=== PATIENT | female | born 1995 | race Hispanic/Latino ===

== ENCOUNTER 2018-04-07 12:16 | Emergency (ER) | payer MEDICAID ==
[2018-04-07 13:18] LABS: Urine Blood TRACE (NEG); Urine Glucose NEGATIVE (NEG); Urine Protein NEGATIVE (NEG); Urine Specific Gravity 1.015 (1.005-1.030)
[2018-04-07 13:29] LABS: Urine Bacteria <20 /HPF (<20); Urine RBC <5 /HPF (NONE SEEN)
[2018-04-07 13:30] LABS: Urine Culture Reflex Order NOT NEEDED
--- NOTE | 2018-04-07 15:45 | EDPHYS ---
Physician Documentation [facility] Name: Mayte Wright Age: 22 yrs Sex: Female : 1995 Arrival Date: 04/07/2018 Time: 12:20 Bed 16 Private MD: None, None ED Physician Devon Gibson HPI: 04/07 21:48 This 22 yrs old Female presents to ER via Ambulatory with complaints of kdr Abdominal Pain. 21:48 The patient presents to the emergency department with The patient states that she took kdr three home tests that were positive and then went to another clinic where they performed two tests that were negative. She wants to know whether she is or not. 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 - Social history:: Smoking status: Patient/guardian denies using tobacco. - Ebola Screening: : No symptoms or risks identified at this time. ROS: 21:48 Constitutional: Negative for fever, chills, and weight loss, Eyes: Negative for injury, kdr pain, redness, and discharge, ENT: Negative for injury, pain, and discharge, Neck: Negative for injury, pain, and swelling, Cardiovascular: Negative for chest pain, palpitations, and edema, Respiratory: Negative for shortness of breath, cough, wheezing, and pleuritic chest pain, Abdomen/GI: Negative for abdominal pain, nausea, vomiting, diarrhea, and constipation, Back: Negative for injury and pain, MS/Extremity: Negative for injury and deformity, Skin: Negative for injury, rash, and discoloration, Neuro: Negative for headache, weakness, numbness, tingling, and seizure activity. Psych: Negative for depression, anxiety, suicide ideation, homicidal ideation, and hallucinations, Allergy/Immunology: Negative for hives, rash, and allergies, Endocrine: Negative for neck swelling, polydipsia, polyuria, polyphagia, and marked weight changes, Hematologic/Lymphatic: Negative for swollen nodes, abnormal bleeding, and unusual bruising. 21:48 : Positive for vaginal itching, Intermittent for a year or more - denies discharge. Exam: 21:48 Constitutional: This is a well developed, well nourished patient who is awake, alert, kdr and in no acute distress. Head/Face: Normocephalic, atraumatic. Eyes: Pupils equal round and reactive to light, extra-ocular motions intact. Lids and lashes normal. Conjunctiva and sclera are non-icteric and not injected. Cornea within normal limits. Periorbital areas with no swelling, redness, or edema. Neck: Trachea midline, no thyromegaly or masses palpated, and no cervical lymphadenopathy. Supple, full range of motion without nuchal rigidity, or vertebral point tenderness. No Meningismus. Chest/axilla: Normal chest wall appearance and motion. Nontender with no deformity. No lesions are appreciated. Cardiovascular: Regular rate and rhythm with a normal S1 and S2. No gallops, murmurs, or rubs. Normal PMI, no JVD. No pulse deficits. Respiratory: Lungs have equal breath sounds bilaterally, clear to auscultation and percussion. No rales, rhonchi or wheezes noted. No increased work of breathing, no retractions or nasal flaring. Abdomen/GI: Soft, non-tender, with normal bowel sounds. No distension or tympany. No guarding or rebound. No evidence of tenderness throughout. Back: No spinal tenderness. No costovertebral tenderness. Full range of motion. Skin: Warm, dry with normal turgor. Normal color with no rashes, no lesions, and no evidence of cellulitis. MS/ Extremity: Pulses equal, no cyanosis. Neurovascular intact. Full, normal range of motion. Neuro: Awake and alert, GCS 15, oriented to person, place, time, and situation. Cranial nerves II-XII grossly intact. Motor strength 5/5 in all extremities. Sensory grossly intact. Cerebellar exam normal. Normal gait. Psych: Awake, alert, with orientation to person, place and time. Behavior, mood, and affect are within normal limits. Vital Signs: 12:39 BP 120 / 77; Pulse 91; Resp 16; Temp 97.7; Pulse Ox 99% on R/A; Weight 72.57 kg; Height aj 5 ft. 4 in. (162.56 cm); Pain 6/10; 14:30 BP 124 / 75; Pulse 85; Resp 16; Pulse Ox 99% ; jl7 16:06 BP 104 / 74; Pulse 88; Resp 14 S; Pulse Ox 99% on R/A; aa5 12:39 Body Mass Index 27.46 (72.57 kg, 162.56 cm) aj MDM: 13:45 Patient medically screened. snw 21:48 Data reviewed: vital signs, lab test result(s). Counseling: I had a detailed discussion kdr with the patient and/or guardian regarding: the historical points, exam findings, and any diagnostic results supporting the discharge/admit diagnosis, lab results, the need for outpatient follow up. 04/07 13:10 Order name: Urine Dipstick--Ancillary (enter results); Complete Time: 13:41 04/07 13:10 Order name: Urine --Ancillary (enter results); Complete Time: 13:41 04/07 13:10 Order name: Urine Microscopic Only; Complete Time: 13:41 04/07 13:10 Order name: Urine Culture 04/07 13:31 Order name: HCG-Quantitative [facility] 04/07 13:31 Order name: HCG, Quantitative; Complete Time: 15:39 EDMS Administered Medications: No medications were administered Disposition: 04/07/18 15:44 Discharged to Home. Impression: test confirmation: Negative today. - Condition is Fair. - Prescriptions for Fluconazole 150 mg Oral Tablet - take 1 tablet by ORAL route once daily; 1 tablet. - Medication Reconciliation Form, Thank You Letter form. - Follow up: Private Physician; When: 2 - 3 days; Reason: If symptoms return, Further diagnostic work-up, Recheck today's complaints, Continuance of care, Re-evaluation by your physician. - Problem is new. - Symptoms are resolved. Signatures: Dispatcher [employer] EDMS Josep Hill jb1 Vicky Schmitt, MYRA RN Devon Godinez MD MD kdr Therrien, Shelly, SENIOR INFORMATION SYSTEMS ARCHITECT-C SENIOR INFORMATION SYSTEMS ARCHITECT-Csnw Ananda Ramos RN RN jl7 Corrections: (The following items were deleted from the chart) 16:07 15:44 04/07/2018 15:44 Discharged to Home. Impression: test confirmation: jb1 Negative today. Condition is Fair. Forms are Medication Reconciliation Form, Thank You Letter, Antibiotic Education, Prescription Opioid Use. Follow up: Private Physician; When: 2 - 3 days; Reason: If symptoms return, Further diagnostic work-up, Recheck today's complaints, Continuance of care, Re-evaluation by your physician. Problem is new. Symptoms are resolved. kdr
--- NOTE | 2018-04-07 15:45 | ER ---
Nurse's Notes [facility] Name: Mayte Wright Age: 22 yrs Sex: Female : 1995 Arrival Date: 04/07/2018 Time: 12:20 Bed 16 Private MD: None, None Diagnosis: test confirmation: Negative today Presentation: 04/07 12:37 Presenting complaint: Patient states: Reports possible yeast infection with abdominal aj cramping. Patient also reports 3 + UPT at home and negative UPT at clinic this AM. Patient would like blood test for . "My IUD fell out 2 weeks ago.". Transition of care: patient was not received from another setting of care. Onset of symptoms was April 07, 2018. Care prior to arrival: None. 12:37 Method Of Arrival: Ambulatory aj 12:37 Acuity: ANN 4 aj 12:40 Risk Assessment: Do you want to hurt yourself or someone else? Patient reports no jl7 desire to harm self or others. Initial Sepsis Screen: Does the patient meet any 2 criteria? No. Patient's initial sepsis screen is negative. Does the patient have a suspected source of infection? No. Patient's initial sepsis screen is negative. Triage Assessment: 12:39 General: Appears in no apparent distress. comfortable, Behavior is calm, cooperative, aj appropriate for age. Neuro: Level of Consciousness is awake, alert, obeys commands, Oriented to person, place, time, situation, Appropriate for age. Respiratory: Airway is patent Respiratory effort is even, unlabored, Respiratory pattern is regular, symmetrical. GI:. : Reports cramping, vaginal itching, Denies vaginal bleeding. Derm: Skin is intact, is healthy with good turgor, Skin is pink, warm \\T\\ dry. normal. 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 - Social history:: Smoking status: Patient/guardian denies using tobacco. - Ebola Screening: : No symptoms or risks identified at this time. Screenin:50 Abuse screen: Denies threats or abuse. Denies injuries from another. Nutritional jl7 screening: No deficits noted. Tuberculosis screening: No symptoms or risk factors identified. Fall Risk None identified. Assessment: 12:50 General: Appears in no apparent distress. uncomfortable, Behavior is calm, cooperative, jl7 appropriate for age. Pain: Complains of pain in suprapubic area Pain does not radiate. Pain currently is 7 out of 10 on a pain scale. Pain began 2-3 days ago. Is intermittent. Neuro: Level of Consciousness is awake, alert, obeys commands. Cardiovascular: Patient's skin is warm and dry. Respiratory: Airway is patent Respiratory effort is even, unlabored, Respiratory pattern is regular, symmetrical. GI: Bowel sounds present X 4 quads. Abd is soft and non tender. : Reports vaginal itching, "For a year but I haven't gotten treated." Denies burning with urination. Derm: Skin is pink, warm \\T\\ dry. 14:00 Reassessment: Patient and/or family updated on plan of care and expected duration. Pain jl7 level reassessed. Patient is alert, oriented x 3, equal unlabored respirations, skin warm/dry/pink. Pt awaiting lab results. 15:00 Reassessment: Patient appears in no apparent distress at this time. No changes from jl7 previously documented assessment. Awaiting lab results. Magdiel from lab reports results should be done soon. Provider notified. 15:30 Reassessment: Magdiel from lab states "Results are posted." Provider notified. jl7 16:06 Reassessment: Patient is alert, oriented x 3, equal unlabored respirations, skin aa5 warm/dry/pink. Vital Signs: 12:39 BP 120 / 77; Pulse 91; Resp 16; Temp 97.7; Pulse Ox 99% on R/A; Weight 72.57 kg; Height aj 5 ft. 4 in. (162.56 cm); Pain 6/10; 14:30 BP 124 / 75; Pulse 85; Resp 16; Pulse Ox 99% ; jl7 16:06 BP 104 / 74; Pulse 88; Resp 14 S; Pulse Ox 99% on R/A; aa5 12:39 Body Mass Index 27.46 (72.57 kg, 162.56 cm) ED Course: 12:20 Patient arrived in ED. mr 12:20 None, None is Private Physician. mr 12:38 Triage completed. aj 12:39 Arm band placed on left wrist. Patient placed in an exam room. aj 12:50 Patient has correct armband on for positive identification. Bed in low position. Call jl7 light in reach. Side rails up X 1. 12:50 Urine collected: clean catch specimen. jl7 12:57 Ananda Ramos RN is Primary Nurse. jl7 13:05 Devon Gibson MD is Attending Physician. kdr 13:49 HCG-Quantitative Sent. jl7 16:06 Patient did not have IV access during this emergency room visit. aa5 16:06 No provider procedures requiring assistance completed. jl7 Administered Medications: No medications were administered Outcome: 15:44 Discharge ordered by . kdr 16:06 Discharged to home ambulatory. aa5 16:06 Condition: good 16:06 Discharge instructions given to patient, Instructed on discharge instructions, follow up and referral plans. medication usage, Demonstrated understanding of instructions, follow-up care, medications, Prescriptions given X 1. 16:07 Patient left the ED. jb1 Signatures: Josep Hill jb1 Vicky Schmitt, RN RN Devon Godinez MD MD kdr Rivera, Maria mr ZhouAnne Marie polanco, RN RN Ananda Sims, MYRA RN jl7 Corrections: (The following items were deleted from the chart) 12:40 12:37 Presenting complaint: Patient states: Reports possible yeast infection with aj abdominal cramping. Patient also reports 3 + UPT at home and negative UPT at clinic this AM. Patient would like blood test for aj 13:12 12:50 : Denies burning with urination, jl7 7 16:48 16:47 Initial Sepsis Screen: Does the patient meet any 2 criteria? No. Patient's 7 initial sepsis screen is negative. Does the patient have a suspected source of infection? No. Patient's initial sepsis screen is negative. jl7 16:48 16:47 Risk Assessment: Do you want to hurt yourself or someone else? Patient reports no jl7 desire to harm self or others. jl7
== END 2018-04-07 16:07 | disposition home or self-care (01) ==
LOC: ER 12:16
DX: Z32.02 Encounter for pregnancy test, result negative (principal)
CPT/HCPCS: 36415; 81003; 81015; 81025; 84702; 87086; 87088; 99283

== ENCOUNTER 2018-12-21 19:53 | Emergency (ER) | payer OTHER, SELFPAY ==
[2018-12-21 23:06] LABS: Absolute Lymphocytes (CBC) 2.6 K/uL (0.7-4.9); Absolute Monocytes 0.8 K/uL (0.1-1.3); Absolute Neutrophil 9.9 K/uL (1.8-8.0); Basophils % 0.4 % (0-1.3); Eosinophils % 0.5 % (0-4.4); Hematocrit 40.6 % (36.0-45.0); Lymphocytes % 19.6 % (15.3-44.8); MPV 10.1 fL (7.6-11.3); RBC Red Blood Cell Count 4.72 M/uL (3.86-4.86)
[2018-12-21 23:41] LABS: BUN Blood Urea Nitrogen 8 mg/dL (7-18); Bicarbonate 28 mmol/L (21-32); Glucose Level 92 mg/dL (74-106); HCG, Quantitative 75001 mIU/mL (1-3); Potassium 3.7 mmol/L (3.5-5.1); Sodium Level 139 mmol/L (136-145)
[2018-12-21 23:44] LABS: Urine Blood TRACE (NEG); Urine Glucose NEGATIVE (NEG); Urine Protein NEGATIVE (NEG)
[2018-12-22 01:15] LABS: Urine Bacteria <20 /HPF (<20); Urine Culture Reflex Order NOT NEEDED; Urine RBC <5 /HPF (NONE SEEN)
--- NOTE | 2018-12-22 02:22 | ER ---
Nurse's Notes [facility] Name: Mayte Wright Age: 23 yrs Sex: Female : 1995 Arrival Date: 12/21/2018 Time: 20:00 Bed 23 Private MD: Diagnosis: First trimester - vaginal discharge Presentation: 12/21 20:24 Presenting complaint: Patient states: "I've been having lower pain and I'm 8 weeks aj1 . I haven't gone to the doctor and I have green discharge, and I've been getting really bad headaches." Patient denies fever. Transition of care: patient was not received from another setting of care. Onset of symptoms was December 21, 2018. Risk Assessment: Do you want to hurt yourself or someone else? Patient reports no desire to harm self or others. Initial Sepsis Screen: Does the patient meet any 2 criteria? No. Patient's initial sepsis screen is negative. Does the patient have a suspected source of infection? No. Patient's initial sepsis screen is negative. Care prior to arrival: None. 20:24 Method Of Arrival: Ambulatory aj1 20:24 Acuity: ANN 3 aj1 Triage Assessment: 20:26 General: Appears in no apparent distress. comfortable, Behavior is calm, cooperative, aj1 appropriate for age. Pain: Complains of pain in pelvis Pain currently is 6 out of 10 on a pain scale. Neuro: Level of Consciousness is awake, alert, obeys commands. Cardiovascular: Patient's skin is warm and dry. Respiratory: Airway is patent Respiratory effort is even, unlabored, Respiratory pattern is regular, symmetrical. GI: No signs and/or symptoms were reported involving the gastrointestinal system. : Parent/caregiver report the patient having discharge from vagina that is green. 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 - Social history:: Smoking status: Patient/guardian denies using tobacco. - Ebola Screening: : Patient denies travel to an Ebola-affected area in the days before illness onset. Screenin/14 01:59 Abuse screen: Denies threats or abuse. Denies injuries from another. Nutritional mg2 screening: No deficits noted. Tuberculosis screening: No symptoms or risk factors identified. Fall Risk IV access (20 points). Assessment: 12/21 20:45 General: Appears in no apparent distress. comfortable, Behavior is calm, cooperative, ca1 appropriate for age. Pain: Complains of pain in suprapubic area and pelvis Pain currently is 7 out of 10 on a pain scale. Neuro: Level of Consciousness is awake, alert, obeys commands, Oriented to person, place, time, situation. Cardiovascular: Heart tones S1 S2 present Capillary refill < 3 seconds Patient's skin is warm and dry. Respiratory: Airway is patent Respiratory effort is even, unlabored, Respiratory pattern is regular, symmetrical. GI: Abdomen is flat, non-distended, Bowel sounds present X 4 quads. Abd is soft X 4 quads Abdomen is tender to palpation in suprapubic area and pelvis. : Reports discharge, green. EENT: No signs and/or symptoms were reported regarding the EENT system. Derm: Skin is intact, is healthy with good turgor, Skin is pink, warm \\T\\ dry. Musculoskeletal: Circulation, motion, and sensation intact. 21:50 Reassessment: Patient appears in no apparent distress at this time. Patient and/or ca1 family updated on plan of care and expected duration. Pain level reassessed. Patient is alert, oriented x 3, equal unlabored respirations, skin warm/dry/pink. 22:49 Reassessment: Patient appears in no apparent distress at this time. Patient and/or ca1 family updated on plan of care and expected duration. Pain level reassessed. Patient is alert, oriented x 3, equal unlabored respirations, skin warm/dry/pink. 12/22 00:00 Reassessment: Patient appears in no apparent distress at this time. Patient and/or ca1 family updated on plan of care and expected duration. Pain level reassessed. Patient is alert, oriented x 3, equal unlabored respirations, skin warm/dry/pink. Provider at bedside for pelvic exam. Vital Signs: 12/21 20:26 BP 116 / 70; Pulse 89; Resp 18; Temp 97.2; Pulse Ox 100% on R/A; Weight 81.19 kg (R); aj1 Height 5 ft. 4 in. (162.56 cm) (R); Pain 6/10; 21:30 BP 107 / 72; Pulse 91; Resp 18; Pulse Ox 100% on R/A; ca1 22:35 BP 112 / 75; Pulse 91; Resp 19; Pulse Ox 100% on R/A; ca1 23:40 BP 106 / 71; Pulse 90; Resp 19; Pulse Ox 100% on R/A; ca1 02 00:34 BP 102 / 64; Pulse 89; Resp 19; Pulse Ox 100% on R/A; ca1 02:33 BP 117 / 62; Pulse 73; Resp 16; Temp 98.9; Pulse Ox 100% ; lt1 12/21 20:26 Body Mass Index 30.72 (81.19 kg, 162.56 cm) aj1 ED Course: 12/21 20:00 Patient arrived in ED. ag3 20:25 Triage completed. aj1 20:26 Arm band placed on Patient placed in waiting room. aj1 20:40 Nick Vazquez NP is PHCP. pm1 20:40 Gregorio Alvarez MD is Attending Physician. pm1 21:22 Elsie Iqbal, MYRA is Primary Nurse. ca1 22:11 Missed attempt(s): 22 gauge in right antecubital area. lt1 22:12 Missed attempt(s): 22 gauge in left forearm. lt1 22:29 US Transvaginal Ob In Process Unspecified. EDMS 22:30 Missed attempt(s): 22 gauge in left hand. ca1 22:44 Missed attempt(s): 22 gauge in right wrist. ca1 22:50 Inserted saline lock: 20 gauge in left antecubital area, using aseptic technique. ca1 ,using aseptic technique. By Ricardo Thomas RN Blood collected. 12/22 00:00 Assist provider with pelvic exam: Set up pelvic tray. Performed by Nick Vazquez NP ca1 Specimens sent to lab. Patient tolerated well. 00:53 IV discontinued, intact, bleeding controlled, No redness/swelling at site. Pressure ca1 dressing applied. 01:59 Patient has correct armband on for positive identification. mg2 Administered Medications: No medications were administered Outcome: 02:21 Discharge ordered by . pm1 02:43 Discharged to home ambulatory. rv 02:43 Condition: good 02:43 Discharge instructions given to patient, Instructed on discharge instructions, follow up and referral plans. Demonstrated understanding of instructions, follow-up care. 02:44 Patient left the ED. rv Signatures: Dispatcher [employer] EDRakel Celis RN RN aj1 Nick Vazquez, TOWER CLEANER TOWER CLEANER pm1 Indio Del Valle RN RN mg2 Ricardo Thomas RN RN rv Perri Farley ag3 Elsie Iqbal RN RN ca1 Laura Bennett 1
--- NOTE | 2018-12-22 02:23 | EDPHYS ---
Physician Documentation [facility] Name: Mayte Wright Age: 23 yrs Sex: Female : 1995 Arrival Date: 12/21/2018 Time: 20:00 Bed 23 Private MD: ED Physician Gregorio Alvarez HPI: 12/21 21:50 This 23 yrs old Female presents to ER via Ambulatory with complaints of pm1 Vaginal Discharge, Abdominal Pain. 21:50 The patient presents with vaginal discharge, that is green discharge, patient has had pm1 similar discharge in the past. Onset: The symptoms/episode began/occurred 3 week(s) ago. Modifying factors: The symptoms are alleviated by nothing, the symptoms are aggravated by nothing. Associated signs and symptoms: Pertinent positives: vaginal discharge, lower abdominal pain, Pertinent negatives: dysuria, fever, urinary frequency, vaginal bleeding. Severity of symptoms: in the emergency department the symptoms are unchanged. The patient is sexually active, reportedly has a single partner, does not use protection during intercourse, continuing to have sexual intercourse. intercourse is not painful. The patient's method of control includes nothing. The patient has been recently seen by a physician: Seen at another ER for the same complaints 3 weeks ago. 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 - Social history:: Smoking status: Patient/guardian denies using tobacco. - Ebola Screening: : Patient denies travel to an Ebola-affected area in the 21 days before illness onset. ROS: 21:50 Positive for vaginal discharge, Negative for urinary symptoms, burning with pm1 urination, vaginal bleeding. 21:50 Constitutional: Negative for fever, chills, and weight loss, Eyes: Negative for injury, pain, redness, and discharge, ENT: Negative for injury, pain, and discharge, Neck: Negative for injury, pain, and swelling, Cardiovascular: Negative for chest pain, palpitations, and edema, Respiratory: Negative for shortness of breath, cough, wheezing, and pleuritic chest pain. 21:50 Back: Negative for injury and pain, MS/Extremity: Negative for injury and deformity, Skin: Negative for injury, rash, and discoloration, Neuro: Negative for headache, weakness, numbness, tingling, and seizure. 21:50 Abdomen/GI: Positive for abdominal pain, of the suprapubic area. Exam: 21:50 Constitutional: This is a well developed, well nourished patient who is awake, alert, pm1 and in no acute distress. Head/Face: Normocephalic, atraumatic. Eyes: Pupils equal round and reactive to light, extra-ocular motions intact. Lids and lashes normal. Conjunctiva and sclera are non-icteric and not injected. Cornea within normal limits. Periorbital areas with no swelling, redness, or edema. ENT: Nares patent. No nasal discharge, no septal abnormalities noted. Tympanic membranes are normal and external auditory canals are clear. Oropharynx with no redness, swelling, or masses, exudates, or evidence of obstruction, uvula midline. Mucous membranes moist. Neck: Trachea midline, no thyromegaly or masses palpated, and no cervical lymphadenopathy. Supple, full range of motion without nuchal rigidity, or vertebral point tenderness. No Meningismus. Chest/axilla: Normal chest wall appearance and motion. Nontender with no deformity. No lesions are appreciated. Cardiovascular: Regular rate and rhythm with a normal S1 and S2. No gallops, murmurs, or rubs. Normal PMI, no JVD. No pulse deficits. Respiratory: Lungs have equal breath sounds bilaterally, clear to auscultation and percussion. No rales, rhonchi or wheezes noted. No increased work of breathing, no retractions or nasal flaring. Abdomen/GI: Soft, non-tender, with normal bowel sounds. No distension or tympany. No guarding or rebound. No evidence of tenderness throughout. Back: No spinal tenderness. No costovertebral tenderness. Full range of motion. Skin: Warm, dry with normal turgor. Normal color with no rashes, no lesions, and no evidence of cellulitis. MS/ Extremity: Pulses equal, no cyanosis. Neurovascular intact. Full, normal range of motion. 21:50 Neuro: Orientation: is normal, Motor: is normal, Sensation: is normal, no obvious gross deficits, Gait: is steady, at a normal pace, without difficulty. Vital Signs: 20:26 BP 116 / 70; Pulse 89; Resp 18; Temp 97.2; Pulse Ox 100% on R/A; Weight 81.19 kg (R); aj1 Height 5 ft. 4 in. (162.56 cm) (R); Pain 6/10; 21:30 BP 107 / 72; Pulse 91; Resp 18; Pulse Ox 100% on R/A; ca1 22:35 BP 112 / 75; Pulse 91; Resp 19; Pulse Ox 100% on R/A; ca1 23:40 BP 106 / 71; Pulse 90; Resp 19; Pulse Ox 100% on R/A; ca1 12/22 00:34 BP 102 / 64; Pulse 89; Resp 19; Pulse Ox 100% on R/A; ca1 02:33 BP 117 / 62; Pulse 73; Resp 16; Temp 98.9; Pulse Ox 100% ; lt1 12/21 20:26 Body Mass Index 30.72 (81.19 kg, 162.56 cm) aj1 MDM: 12/21 20:53 Patient medically screened. pm1 21:53 Data reviewed: vital signs. Data interpreted: Pulse oximetry: on room air is 100 %. pm1 Interpretation: normal. 12/22 02:15 Counseling: I had a detailed discussion with the patient and/or guardian regarding: the pm1 historical points, exam findings, and any diagnostic results supporting the discharge/admit diagnosis, lab results, radiology results, the need for outpatient follow up, to return to the emergency department if symptoms worsen or persist or if there are any questions or concerns that arise at home. 02:21 ED course: Patient tested 3 weeks ago for gonorrhea and chlamydia at ER. Patient pm1 reports results were negative. Patient with one sexual partner. Will wait for GC probe results. Impression is normal vaginal discharge with first trimester . 12/21 20:55 Order name: Urine Microscopic Only; Complete Time: 01:21 pm1 12/21 20:56 Order name: Quantitative Hcg; Complete Time: 23:48 pm1 12/21 20:56 Order name: Abo/rh Typing; Complete Time: 00:03 pm1 12/21 20:56 Order name: Basic Metabolic Panel; Complete Time: 23:48 pm1 12/21 20:56 Order name: CBC with Diff; Complete Time: 23:48 pm1 12/21 20:56 Order name: GC (GONORR/CHLAMYDIA) Probe pm1 12/21 20:55 Order name: Urine Dipstick-Ancillary (obtain specimen); Complete Time: 23:16 pm1 12/21 20:55 Order name: Urine Test (obtain specimen); Complete Time: 23:16 pm1 12/21 20:56 Order name: IV Saline Lock; Complete Time: 22:58 pm1 12/21 20:56 Order name: Labs collected and sent; Complete Time: 22:58 pm1 12/21 21:13 Order name: US Transvaginal Ob pm1 12/21 23:07 Order name: Urine Dipstick--Ancillary (enter results); Complete Time: 23:48 ar5 12/21 23:07 Order name: Urine --Ancillary (enter results); Complete Time: 23:48 ar5 12/21 23:27 Order name: Wet Prep; Complete Time: 02:14 pm1 12/21 20:56 Order name: NPO; Complete Time: 22:58 pm1 12/21 20:56 Order name: Pelvic Exam Setup; Complete Time: 00:20 pm1 Administered Medications: No medications were administered Disposition: 07:27 Co-signature as Attending Physician, Gregorio Alvarez MD I agree with the assessment and marzena plan of care. Disposition: 12/22/18 02:21 Discharged to Home. Impression: First trimester - vaginal discharge. - Condition is Stable. - Discharge Instructions: First Trimester of . - Medication Reconciliation Form, Thank You Letter, Antibiotic Education, Prescription Opioid Use, Family Work Release form. - Follow up: Emergency Department; When: As needed; Reason: Worsening of condition. Follow up: Private Physician; When: 2 - 3 days; Reason: Recheck today's complaints, Continuance of care, Re-evaluation by your physician. - Problem is new. - Symptoms have improved. Signatures: Dispatcher [employer] Rakel Hartmann, RN RN aj1 Gregorio Alvarez MD MD cha Marinas, Patrick, WORKPLACE RELATIONS ADVISER WORKPLACE RELATIONS ADVISER pm1 Ricardo Thomas RN RN rv Corrections: (The following items were deleted from the chart) 02:44 02:21 12/22/2018 02:21 Discharged to Home. Impression: First trimester - rv vaginal discharge. Condition is Stable. Forms are Medication Reconciliation Form, Thank You Letter, Antibiotic Education, Prescription Opioid Use. Follow up: Emergency Department; When: As needed; Reason: Worsening of condition. Follow up: Private Physician; When: 2 - 3 days; Reason: Recheck today's complaints, Continuance of care, Re-evaluation by your physician. Problem is new. Symptoms have improved. pm1
--- NOTE | 2018-12-22 09:50 | RAD REPORT ---
EXAM DESCRIPTION: US - Transvaginal OB - 12/21/2018 10:28 pm CLINICAL HISTORY: , abdominal cramping, vaginal discharge Preliminary findings provided at the time of the study. COMPARISON: Ultrasound October 2016 TECHNIQUE: Endovaginal sonography performed. FINDINGS: The normal shaped intrauterine gestational sac is identified. Yolk sac and pole iden tified. Heart rate is 158 BPM. A 10 millimeter subchorionic hemorrhage is present at the inferior mar gin of the gestational sac not regarded as significant at that small size. [place]-rump length correspo nds to 8 week 0 day age. Calculated DIANA is 08/02/2019. Cervical canal is closed. No ovarian or adnexal abnormality seen. No blood or fluid in the cul de sac. No myometrial mass. IMPRESSION: Single 8 week 0 day IUP identified with heart rate 158 BPM. Small 10 mm subchorionic hemorrhage along the inferior margin common not regarded as significant at t hat size.
[2018-12-24 21:14] LABS: C.trachomatis RNA,TMA Not Detected (Not Detected)
== END 2018-12-22 02:44 | disposition home or self-care (01) ==
LOC: ER 19:53
DX: O26.891 Other specified pregnancy related conditions, first trimester (principal); Z3A.08 8 weeks gestation of pregnancy
CPT/HCPCS: 36415; 76817; 80048; 81003; 81015; 81025; 84702; 85025; 86900; 86901; 87210; 87490; 87590; 99284

== ENCOUNTER 2019-01-15 21:23 | Emergency (ER) | payer OTHER ==
--- OUTSIDE RECORDS SUMMARY | 2019-01-15 21:25 | XMS REPORT ---
:1995 [facility] [place] [address] Care Team Providers Name Role Phone Unavailable Unavailable Unavailable Problems This patient has no known problems. Allergies, Adverse Reactions, Alerts This patient has no known allergies or adverse reactions. Medications This patient has no known medications.
[2019-01-15 22:20] LABS: Absolute Lymphocytes (CBC) 0.5 K/uL (0.7-4.9); Absolute Monocytes 0.7 K/uL (0.1-1.3); Absolute Neutrophil 9.6 K/uL (1.8-8.0); Basophils % 0.1 % (0-1.3); Eosinophils % 0.3 % (0-4.4); Lymphocytes % 4.7 % (15.3-44.8); MPV 10.2 fL (7.6-11.3); RBC Red Blood Cell Count 4.56 M/uL (3.86-4.86)
[2019-01-15 22:26] LABS: Protime INR 1.05
[2019-01-15] MEDS ORDERED: ACETAMINOPHEN 500 MG TAB ONE (22:31)
[2019-01-15 22:40] LABS: ALT/SGPT 16 U/L (12-78); AST/SGOT 13 U/L (15-37); Albumin 3.7 g/dL (3.4-5.0); Alkaline Phosphatase 70 U/L (45-117); BUN Blood Urea Nitrogen 6 mg/dL (7-18); Bicarbonate 25 mmol/L (21-32); Bilirubin Direct 0.1 mg/dL (0-0.2); Bilirubin Total 0.3 mg/dL (0.2-1.0); Glucose Level 94 mg/dL (74-106); Magnesium 1.9 mg/dL (1.8-2.4); NT PRO-BNP 19 pg/mL (<125); Potassium 3.3 mmol/L (3.5-5.1); Protein, Total 7.4 g/dL (6.4-8.2); Sodium Level 139 mmol/L (136-145); Troponin (Emerg Dept Use Only) < 0.02 ng/mL (0.0-0.045)
[2019-01-15] MEDS ORDERED: NA CHLORIDE 0.9% 1,000 ML ONE (23:10)
[2019-01-15 23:18] LABS: Urine Bacteria <20 /HPF (<20); Urine Culture Reflex Order NOT NEEDED; Urine RBC NONE SEEN /HPF (NONE SEEN)
[2019-01-15 23:28] LABS: Blood Morphology Comment NOT SEEN (NOT SEEN); Platelet Estimate ADEQ; Urine White Blood Cell Casts OK
[2019-01-15 23:30] LABS: Urine Specific Gravity 1.015 (1.005-1.030)
[2019-01-15 23:30] LABS: Urine Blood TRACE (NEG); Urine Glucose NEGATIVE (NEG); Urine Protein NEGATIVE (NEG); Urine Specific Gravity 1.015 (1.005-1.030)
--- NOTE | 2019-01-16 00:13 | ER ---
Nurse's Notes [facility] Name: Mayte Wright Age: 23 yrs Sex: Female : 1995 Arrival Date: 01/15/2019 Time: 21:27 Bed 26 Private MD: Diagnosis: Viral infection, unspecified Presentation: 01/15 21:48 Presenting complaint: Patient states: SINCE LAST NIGHT PT C/O COUGH, ITCHING THROAT, ak1 DIZZY, CHEST PAIN. 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 Transition of care: patient was not received from another setting of care. Onset of symptoms was January 14, 2019. Risk Assessment: Do you want to hurt yourself or someone else? Patient reports no desire to harm self or others. Care prior to arrival: None. 21:48 Method Of Arrival: Ambulatory ak1 21:48 Acuity: ANN 3 ak1 22:20 Initial Sepsis Screen: Does the patient meet any 2 criteria? No. Patient's initial rv sepsis screen is negative. Does the patient have a suspected source of infection? No. Patient's initial sepsis screen is negative. Triage Assessment: 21:49 General: Appears in no apparent distress. Behavior is calm, cooperative. 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 - Social history:: Smoking status: Patient/guardian denies using tobacco. - Ebola Screening: : No symptoms or risks identified at this time. Screenin:20 Abuse screen: Denies threats or abuse. Denies injuries from another. Nutritional rv screening: No deficits noted. Tuberculosis screening: No symptoms or risk factors identified. Fall Risk None identified. Assessment: 22:18 General: Appears in no apparent distress. comfortable, Behavior is calm, cooperative. rv Pain: Complains of pain in chest. Neuro: Level of Consciousness is awake, alert, obeys commands, Oriented to person, place, time, situation. Cardiovascular: Capillary refill < 3 seconds. Respiratory: Airway is patent. GI: Abdomen is flat. : No signs and/or symptoms were reported regarding the genitourinary system. EENT: No signs and/or symptoms were reported regarding the EENT system. Derm: Skin is intact. Musculoskeletal: No signs and/or symptoms reported regarding the musculoskeletal system. 01/16 00:25 Reassessment: Patient states feeling better. mg2 Vital Signs: 01/15 21:49 BP 110 / 64; Pulse 129; Resp 16; Temp 98.5; Pulse Ox 100% on R/A; Weight 83.91 kg (R); ak1 Height 5 ft. 4 in. (162.56 cm) (R); Pain 10/10; 22:17 Temp 101.8(O); mg2 23:05 BP 104 / 67; Pulse 112; Resp 17; Temp 99.7(O); Pulse Ox 100% 0 lpm ; Pain 2/10; mg2 21:49 Body Mass Index 31.75 (83.91 kg, 162.56 cm) ak1 ED Course: 21:27 Patient arrived in ED. es 21:49 Triage completed. ak1 21:49 Arm band placed on Patient placed in waiting room, Patient notified of wait time. ak1 21:54 Atilio Shelley PA is PHCP. jr8 21:54 Alcides Santiago MD is Attending Physician. jr8 22:10 Inserted saline lock: 18 gauge in right antecubital area, using aseptic technique. rv Blood collected. 22:18 Strep Sent. rv 22:18 Flu Sent. rv 22:20 Patient has correct armband on for positive identification. Placed in gown. Bed in low rv position. Call light in reach. Side rails up X 1. Adult w/ patient. bus monitor on. Pulse ox on. NIBP on. 01/16 00:30 No provider procedures requiring assistance completed. IV discontinued, intact, mg2 bleeding controlled, No redness/swelling at site. Pressure dressing applied. Administered Medications: 01/15 22:21 Drug: Tylenol 1000 mg Route: PO; mg2 01/16 00:22 Follow up: Response: No adverse reaction; Marked relief of symptoms mg2 01/15 22:58 Drug: NS 0.9% 1000 ml Route: IV; Rate: 1000 ml; Site: right antecubital; mg2 01/16 00:22 Follow up: Response: No adverse reaction; IV Status: Completed infusion mg2 Outcome: 00:13 Discharge ordered by MD. jensen 00:30 Discharged to home ambulatory. mg2 00:30 Condition: stable 00:30 Discharge instructions given to patient, family, Instructed on discharge instructions, follow up and referral plans. medication usage, Demonstrated understanding of instructions, follow-up care, medications, Prescriptions given X 1. 00:32 Patient left the ED. mg2 Signatures: Viv Santos Josh, PA PA jr8 Elle Rodas RN RN ak1 Indio Del Valle RN RN mg2 Ricardo Thomas RN RN rv
--- NOTE | 2019-01-16 00:14 | EDPHYS ---
Physician Documentation [facility] Name: Mayte Wright Age: 23 yrs Sex: Female : 1995 Arrival Date: 01/15/2019 Time: 21:27 Bed 26 Private MD: ED Physician Alcides Santiago HPI: 01/15 22:55 This 23 yrs old Female presents to ER via Ambulatory with complaints of Chest jr8 Pain, Dizziness, Cough. 22:55 The patient reports fever, with an emergency department temperature of 101.8 degrees jr8 Fahrenheit. Onset: The symptoms/episode began/occurred acutely, yesterday. Modifying factors: there are no obvious modifying factors. Associated signs and symptoms: Pertinent positives: chills, cough, sore throat. Severity of symptoms: At their worst the symptoms were moderate. The patient has not experienced similar symptoms in the past. The patient has not recently seen a physician. 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 - Social history:: Smoking status: Patient/guardian denies using tobacco. - Ebola Screening: : No symptoms or risks identified at this time. ROS: 22:56 Neck: Negative for injury, pain, and swelling, Cardiovascular: Negative for chest pain, jr8 palpitations, and edema, Abdomen/GI: Negative for abdominal pain, nausea, vomiting, diarrhea, and constipation, Back: Negative for injury and pain, MS/Extremity: Negative for injury and deformity, Skin: Negative for injury, rash, and discoloration. 22:56 Constitutional: Positive for body aches, chills, fever. 22:56 ENT: Positive for sore throat. 22:56 Respiratory: Positive for cough, Negative for dyspnea on exertion, shortness of breath, sputum production, wheezing. 22:56 Neuro: Positive for headache, Negative for altered mental status, dizziness, gait disturbance, hearing loss, loss of consciousness, numbness, seizure activity, speech changes, syncope, near syncope, tingling, tinnitus, tremor, visual changes, weakness. Exam: 22:56 Eyes: Pupils equal round and reactive to light, extra-ocular motions intact. Lids and jr8 lashes normal. Conjunctiva and sclera are non-icteric and not injected. Cornea within normal limits. Periorbital areas with no swelling, redness, or edema. ENT: Nares patent. No nasal discharge, no septal abnormalities noted. Tympanic membranes are normal and external auditory canals are clear. Oropharynx with no redness, swelling, or masses, exudates, or evidence of obstruction, uvula midline. Mucous membranes moist. Neck: Trachea midline, no thyromegaly or masses palpated, and no cervical lymphadenopathy. Supple, full range of motion without nuchal rigidity, or vertebral point tenderness. No Meningismus. Cardiovascular: Regular rate and rhythm with a normal S1 and S2. No gallops, murmurs, or rubs. Normal PMI, no JVD. No pulse deficits. Respiratory: Lungs have equal breath sounds bilaterally, clear to auscultation and percussion. No rales, rhonchi or wheezes noted. No increased work of breathing, no retractions or nasal flaring. Abdomen/GI: Soft, non-tender, with normal bowel sounds. No distension or tympany. No guarding or rebound. No evidence of tenderness throughout. Back: No spinal tenderness. No costovertebral tenderness. Full range of motion. Skin: Warm, dry with normal turgor. Normal color with no rashes, no lesions, and no evidence of cellulitis. MS/ Extremity: Pulses equal, no cyanosis. Neurovascular intact. Full, normal range of motion. Neuro: Awake and alert, GCS 15, oriented to person, place, time, and situation. Cranial nerves II-XII grossly intact. Motor strength 5/5 in all extremities. Sensory grossly intact. Cerebellar exam normal. Normal gait. Vital Signs: 21:49 BP 110 / 64; Pulse 129; Resp 16; Temp 98.5; Pulse Ox 100% on R/A; Weight 83.91 kg (R); ak1 Height 5 ft. 4 in. (162.56 cm) (R); Pain 10/10; 22:17 Temp 101.8(O); mg2 23:05 BP 104 / 67; Pulse 112; Resp 17; Temp 99.7(O); Pulse Ox 100% 0 lpm ; Pain 2/10; mg2 21:49 Body Mass Index 31.75 (83.91 kg, 162.56 cm) ak1 MDM: 22:24 Patient medically screened. jr8 01/16 00:12 Data reviewed: vital signs, nurses notes, lab test result(s), EKG. Data interpreted: jr8 Pulse oximetry: on room air is 100 %. Interpretation: normal. Counseling: I had a detailed discussion with the patient and/or guardian regarding: the historical points, exam findings, and any diagnostic results supporting the discharge/admit diagnosis, lab results, the need for outpatient follow up, a family practitioner, to return to the emergency department if symptoms worsen or persist or if there are any questions or concerns that arise at home. Response to treatment: the patient's symptoms have markedly improved after treatment, patient is well hydrated. 01/15 22:05 Order name: Flu; Complete Time: 22:57 mg2 01/15 22:05 Order name: Strep; Complete Time: 22:57 mg2 01/15 22:07 Order name: Basic Metabolic Panel; Complete Time: 22:44 mg2 01/15 22:07 Order name: CBC with Diff; Complete Time: 23:35 mg2 01/15 22:07 Order name: LFT's; Complete Time: 22:44 mg2 01/15 22:07 Order name: Magnesium; Complete Time: 22:44 mg2 01/15 22:07 Order name: NT PRO-BNP; Complete Time: 22:44 mg2 01/15 22:07 Order name: PT-INR; Complete Time: 22:57 mg2 01/15 22:07 Order name: Troponin (emerg Dept Use Only); Complete Time: 22:44 mg2 01/15 22:29 Order name: CBC Smear Scan; Complete Time: 23:35 EDMS 01/15 22:47 Order name: Throat Culture EDMS 01/15 22:49 Order name: Urine Microscopic Only; Complete Time: 23:35 eb 01/15 23:16 Order name: Urine Dipstick--Ancillary (enter results); Complete Time: 23:35 eb 01/15 23:21 Order name: Urine --Ancillary (enter results); Complete Time: 23:35 eb 01/15 22:07 Order name: EKG; Complete Time: 22:08 mg2 01/15 22:07 Order name: Cardiac monitoring; Complete Time: 22:17 mg2 01/15 22:07 Order name: EKG - Nurse/Tech; Complete Time: 22:17 mg2 01/15 22:07 Order name: IV Saline Lock; Complete Time: 22:17 mg2 01/15 22:07 Order name: Labs collected and sent; Complete Time: 22: mg2 01/15 22:07 Order name: O2 Per Protocol; Complete Time: : mg2 01/15 22:07 Order name: O2 Sat Monitoring; Complete Time: 22:18 mg2 Administered Medications: 01/15 22:21 Drug: Tylenol 1000 mg Route: PO; mg2 01/16 00:22 Follow up: Response: No adverse reaction; Marked relief of symptoms mg2 01/15 22:58 Drug: NS 0.9% 1000 ml Route: IV; Rate: 1000 ml; Site: right antecubital; mg2 01/16 00:22 Follow up: Response: No adverse reaction; IV Status: Completed infusion mg2 Disposition: 06:10 Co-signature as Attending Physician, Alcides Santiago MD I agree with the assessment and tw4 plan of care. Disposition: 01/16/19 00:13 Discharged to Home. Impression: Viral infection, unspecified. - Condition is Stable. - Discharge Instructions: Viral Respiratory Infection. - Prescriptions for Tamiflu 75 mg Oral Capsule - take 1 capsule by ORAL route every 12 hours for 5 days; 10 capsule. - Medication Reconciliation Form, Thank You Letter, Antibiotic Education, Prescription Opioid Use form. - Follow up: Private Physician; When: 2 - 3 days; Reason: Recheck today's complaints, Continuance of care, Re-evaluation by your physician. - Problem is new. - Symptoms have improved. Signatures: Dispatcher [employer] EDIN Atilio Shelley PA PA jr8 Elle Rodas RN RN ak1 Alcides Santiago MD MD tw4 Indio Del Valle RN RN mg2 Ricardo Thomas RN RN rv Corrections: (The following items were deleted from the chart) 01/15 23:13 22:58 Chest Single View+[id number] ordered. [facility] EDIN 01/16 00:32 00:13 01/16/2019 00:13 Discharged to Home. Impression: Viral infection, unspecified. mg2 Condition is Stable. Forms are Medication Reconciliation Form, Thank You Letter, Antibiotic Education, Prescription Opioid Use. Follow up: Private Physician; When: 2 - 3 days; Reason: Recheck today's complaints, Continuance of care, Re-evaluation by your physician. Problem is new. Symptoms have improved. jr8
--- NOTE | 2019-01-16 08:34 | EKG ---
Test Date: 2019-01-15 Test Time: 20:58:23 Field Pipelines Supervisor: [employer]OT MEASUREMENT RESULTS: Intervals: Rate: 126 FL: 152 QRSD: 86 QT: 322 QTc: 466 [place]: P: 46 FL: 152 QRS: 38 T: 32 INTERPRETIVE STATEMENTS: Sinus tachycardia Otherwise normal ECG No previous ECG available for comparison Electronically Signed On 01-16-19 08:33:32 CDT by Harris Villarreal
== END 2019-01-16 00:32 | disposition home or self-care (01) ==
LOC: ER 21:23
DX: O26.891 Other specified pregnancy related conditions, first trimester (principal); B34.9 Viral infection, unspecified; R07.9 Chest pain, unspecified; R42 Dizziness and giddiness; R05 Cough; Z3A.11 11 weeks gestation of pregnancy
CPT/HCPCS: 36415; 80048; 80076; 81003; 81015; 81025; 83735; 83880; 84484; 85025; 85610; 87070; 87081; 87804; 93005; 96360; 99284; J7030

== ENCOUNTER 2019-07-28 10:03 | Emergency (ER) | payer OTHER ==
--- OUTSIDE RECORDS SUMMARY | 2019-07-28 10:04 | XMS REPORT | Summary of Care ---
:1995 Author Organization [facility] Address [address] [place] [address] Care Team Providers Name Role Phone Pcp, Patient Does Not Have A Unavailable Piotr Felipe Primary Care Provider Reason for Visit Reason Comments Care Encounter Details Date Type Department Care Team Description 06/13/2019 Routine [facility]- Piotr Felipe High risk , antepartum (Primary Dx); Visit TANESHA Jo Previous delivery affecting , antepartum; [address] [place] [address] [place] [address] [place], [place] [phone] Allergies Active Allergy Reactions Severity Noted Date Comments Oseltamivir Phosphate Rash Medium 02/27/2019 documented as of this encounter (statuses as of 06/13/2019) Medications Medication Sig Dispensed Refills Start Date End Date Status vit Take 1 Packet by 30 Each 6 01/03/2019 Active 68-tjdu-jsgkn-dha mouth daily. (SELECT-OB + DHA) 29 mg iron-1 mg -250 mg combo packIndications: High risk , antepartum documented as of this encounter (statuses as of 06/13/2019) Active Problems Problem Noted Date Abnormal maternal glucose tolerance, antepartum 04/26/2019 Overview: 3hr GTT ordered Cramps of lower extremity 02/27/2019 Maternal varicella, non-immune 01/03/2019 Overview: Address in High risk , antepartum 01/02/2019 Previous delivery affecting , antepartum 01/02/2019 Multiparity 01/02/2019 Back pain, unspecified back location, unspecified back pain laterality, 2018 unspecified chronicity Estimated Date of Delivery Comments Yes 08/05/2019 Based on last menstrual period of 10/29/2018 (Exact Date) documented as of this encounter (statuses as of 06/13/2019) Immunizations Name Administration Dates Next Due Tdap 05/16/2019 documented as of this encounter Social History Tobacco Use Types Packs/Day Years Used Date Never Smoker Smokeless Tobacco: Never Used Alcohol Use Drinks/Week oz/Week Comments No Estimated Date of Delivery Comments Yes 08/05/2019 Based on last menstrual period of 10/29/2018 (Exact Date) Sex Assigned at Date Recorded Not on file Job Start Date Occupation Industry Not on file Not on file Not on file Travel History Travel Start Travel End No recent travel history available. documented as of this encounter Last Filed Vital Signs Vital Sign Reading Time Taken Comments Blood Pressure 116/69 06/13/2019 12:52 PM CDT Pulse 98 06/13/2019 12:52 PM CDT Temperature 36.5 C (97.7 F) 06/13/2019 12:52 PM CDT Respiratory Rate 16 06/13/2019 12:52 PM CDT Oxygen Saturation - - Inhaled Oxygen Concentration - - Weight 91.4 kg (201 lb 8 oz) 06/13/2019 12:52 PM CDT Height 162.6 cm (5' 4") 06/13/2019 12:52 PM CDT Body Mass Index 34.59 06/13/2019 12:52 PM CDT documented in this encounter Progress Notes Piotr Felipe, TANESHA - 06/13/2019 12:45 PM CDT Chief complaint: Chief Complaint Patient presents with Care HPI CC: Follow Up Visit Mayte Wright is a 23 year old, , /White female. Patient's last menstrual period was 10/29/2018 (exact date). She is 32w3d with an intrauterine . Her estimated date of delivery is 08/05/2019, by Last Menstrual Period. She has no complaints today. She reports +FM and denies contractions, LOF and bleeding today. Patient denies current or past physical, sexual or emotional abuse. Histories OB History Para Term AB Living 3 1 1 1 1 SAB TAB Ectopic Multiple Live Births 1 1 # Outcome Date GA Lbr Giles/2nd Weight Sex Delivery Anes PTL Lv 3 Current 2 SAB 09/25/18 1 Term 06/18/17 39w0d 8 lb 13 oz (3.997 kg) F SEC MARAL OB History Para Term AB Living 3 1 1 1 1 SAB TAB Ectopic Multiple Live Births 1 1 # Outcome Date GA Lbr Giles/2nd Weight Sex Delivery Anes PTL Lv 3 Current 2 SAB 09/25/18 1 Term 06/18/17 39w0d 8 lb 13 oz (3.997 kg) F SEC MARAL Past Medical History: Diagnosis Date Abnormal maternal glucose tolerance, antepartum 04/26/2019 Anemia Family History Problem Relation Age of Onset Depression Mother Hypertension Mother Hypothyroidism Mother Diabetes Father High cholesterol Father Hypertension Father Pancreatic Cancer Maternal Grandmother Cancer Maternal Grandmother Lung Cancer Maternal Grandfather Cancer Maternal Grandfather Heart Paternal Grandfather Depression Brother Family Status Relation Name Status Mo Alive Fa Alive MGMo MGFa PGMo Alive PGFa Alive Bro (Not Specified) Past Surgical History: Procedure Laterality Date SECTION Social History Socioeconomic History Marital status: Spouse name: Not on file Number of children: Not on file Years of education: Not on file Highest education level: Not on file Occupational History Not on file Social Needs Financial resource strain: Not on file Food insecurity: Worry: Not on file Inability: Not on file Transportation needs: Medical: Not on file Non-medical: Not on file Tobacco Use Smoking status: Never Smoker Smokeless tobacco: Never Used Substance and Sexual Activity Alcohol use: No Drug use: No Sexual activity: Yes Partners: Male control/protection: None Comment: last intercourse 12/31/18 Lifestyle Physical activity: Days per week: Not on file Minutes per session: Not on file Stress: Not on file Relationships Social connections: Talks on phone: Not on file Gets together: Not on file Attends caodaism service: Not on file Active member of club or organization: Not on file Attends meetings of clubs or organizations: Not on file Relationship status: Not on file Intimate partner violence: Fear of current or ex partner: Not on file Emotionally abused: Not on file Physically abused: Not on file Forced sexual activity: Not on file Other Topics Concern Not on file Social History Narrative Not on file Social History Substance and Sexual Activity Sexual Activity Yes Partners: Male control/protection: None Comment: last intercourse 12/31/18 Labs No new labs Radiology No new radiology. Allergies aMyte is allergic to tamiflu [oseltamivir phosphate]. Medications Mayte has a current medication list which includes the following prescription( s): vit 15-yaep-eoqtv-dha. Review of Systems Eyes: Negative for visual disturbance. Cardiovascular: Negative for leg swelling. Gastrointestinal: Negative for abdominal pain, nausea and vomiting. Genitourinary: Negative for vaginal bleeding, vaginal discharge and pelvic pain. Neurological: Negative for headaches. BP 116/69 (BP Location: Right arm, Patient Position: Sitting, BP CUFF SIZE: Adult Small) | Pulse 98 | Temp 36.5 C (97.7 F) (Oral) | Resp 16 | Ht 5' 4 " (1.626 m) | Wt 201 lb 8 oz (91.4 kg) | LMP 10/29/2018 (Exact Date) | BMI 34.59 kg/m Pregravid BMI: 30.0 Physical Exam PHYSICAL: General Exam: Neurological: Normal Abdomen: Normal Extremities: Normal Pelvic Exam: Uterus: 34cm Weeks Assessment/Plan High risk , antepartum (primary encounter diagnosis) Previous delivery affecting , antepartum Multiparity Comment: Routine Visit Plan: POCT URINALYSIS W SPECIFIC GRAVITY, POCT URINALYSIS W SPECIFIC GRAVITY Denies zika virus risk, signs and symptoms such as fever,rash,joint pain, conjunctivitis (red eyes), muscle pain, headaches; outside [place] travel to areas affected by zika, and FOB exposure to zika.Educated on use of mosquito repellent. Return to clinic in 2 weeks. Discussed treatment options. Medications as ordered. Reviewed patient instructions and provided printed copy. This visit did not involve counseling and coordination that comprised more than 50% of the visit time. TANESHA New 06/13/2019 1:12 PM documented in this encounter Plan of Treatment Date Type Specialty Care Team Description 06/27/2019 Routine Visit OB Satellites Piotr Felipe, TRACER BULLET CHARGING MACHINE OPERATOR [address] [place] [address] [phone] Name Type Priority Associated Diagnoses Order Schedule POCT URINALYSIS W LAB Routine High risk , 20 Occurrences starting SPECIFIC GRAVITY antepartum 06/13/2019 until 04/08/2020, 1 completed Health Maintenance Due Date Last Done Comments MENINGOCOCCAL B VACCINES (1 of 2 - 2005 Risk Bexsero 2-dose series) VARICELLA VACCINES (1 of 2 - 13+ 2008 2-dose series) HPV VACCINES (1 - Female 3-dose 2010 series) INFLUENZA VACCINE 07/09/2019 CHLAMYDIA SCREENING 01/02/2020 01/02/2019 PAP SMEAR 01/02/2022 01/02/2019 DTaP,Tdap,and Td Vaccines (2 - Td) 05/16/2029 05/16/2019 PNEUMOCOCCAL 0-64 YEARS COMBINED Aged Out No longer eligible based on SERIES patient's age to complete this topic documented as of this encounter Procedures Procedure Name Priority Date/Time Associated Diagnosis Comments POCT URINALYSIS Routine 06/13/2019 12:54 PM High risk , Results for this CDT antepartum procedure are in the results section. documented in this encounter Results POCT URINALYSIS W SPECIFIC GRAVITY (06/13/2019 12:54 PM CDT) POCT U SP GRAV . 1.005 - 1.025 mg/dl POCT PH U . 5 - 8 mg/dl POCT U LEUK EST . Negative - Negative POCT U NIT . Negative - Negative POCT U PROT neg Negative - Negative POCT U GLU neg Negative - Negative POCT U KETONE . Negative - Negative POCT U UROBILI . 0.2 - 1 mg/dl POCT U BILI . Negative - Negative POCT U BLD . Negative - Negative POCT U COLOR POCT U APPEAR Specimen Urine - URINE, CLEAN CATCH documented in this encounter Visit Diagnoses Diagnosis High risk , antepartum - Primary Previous delivery affecting , antepartum Previous delivery, antepartum condition or complication Multiparity documented in this encounter Insurance Payer Benefit Plan / Subscriber ID Effective Phone Address Type Group Dates [facility] xxxxxxxxx 2019-Cade [place] Medicaid HEALTH CHOICE - HEALTH CHOICE [id number] MANAGED MEDICAID [place], [place] MEDICAID [id number] documented as of this encounter Advance Directives Name Relationship Healthcare Agent Relationship Communication Kelley Wright Mother Primary healthcare agent
--- OUTSIDE RECORDS SUMMARY | 2019-07-28 10:04 | XMS REPORT ---
:1995 Author [facility] Address [address] [place] [address] Dr. Best [address] [place] [address] Care Team Providers Name Role Phone Unavailable Unavailable Unavailable Problems This patient has no known problems. Allergies, Adverse Reactions, Alerts This patient has no known allergies or adverse reactions. Medications This patient has no known medications.
--- OUTSIDE RECORDS SUMMARY | 2019-07-28 10:05 | XMS REPORT | Summary of Care ---
:1995 Author Organization [facility] Address [address] [place] [address] Care Team Providers Name Role Phone Pcp, Patient Does Not Have A Unavailable Piotr Felipe SLUNK SKINNER Primary Care Provider Reason for Visit Reason Comments Assessment cramping, lower abdomen pain Encounter Details Date Type Department Care Team Description 07/19/[address] [facility]- Piotr Felipe, Assessment ( cramping, [place] SLUNK SKINNER lower abdomen pain) [address] [facility] [address] [place], [place] [phone] Allergies Active Allergy Reactions Severity Noted Date Comments Oseltamivir Phosphate Rash Medium 02/27/2019 documented as of this encounter (statuses as of 07/19/2019) Medications Medication Sig Dispensed Refills Start Date End Date Status vit Take 1 Packet by 30 Each 6 01/03/2019 Active 55-uprm-jpgpe-dha mouth daily. (SELECT-OB + DHA) 29 mg iron-1 mg -250 mg combo packIndications: High risk , antepartum ferrous sulfate 325 mg Take 1 tablet by 60 tablet 3 07/13/2019 Active (65 mg iron) mouth 2 (two) tabletIndications: times daily. Anemia of mother in , antepartum ascorbic acid, vitamin Take 1 tablet by 90 tablet 3 07/13/2019 Active C, 500 mg mouth 3 (three) tabletIndications: times daily. Anemia of mother in , antepartum documented as of this encounter (statuses as of 07/19/2019) Active Problems Problem Noted Date Desires (vaginal after ) trial 07/12/2019 Abnormal maternal glucose tolerance, antepartum 04/26/2019 Overview: [...] as of this encounter (statuses as of 07/19/2019) Immunizations Name Administration Dates Next Due Tdap [...] of this encounter Last Filed Vital Signs Not on filedocumented in this encounter Plan of Treatment Date Type Specialty Care Team Description 07/19/2019 Routine Visit OB Satellites Piotr Felipe, SLUNK SKINNER [address] [place] [address] [phone] Health Maintenance Due Date Last Done Comments MENINGOCOCCAL B VACCINES (1 of 2005 2 - Risk Bexsero 2-dose series) VARICELLA VACCINES (1 of 2 - 2008 13+ 2-dose series) HPV VACCINES (1 - Female 2010 3-dose series) INFLUENZA VACCINE (#1) 2019 CHLAMYDIA SCREENING 07/12/2020 07/12/2019, 01/02/2019 PAP SMEAR 01/02/2022 01/02/2019 DTaP,Tdap,and Td Vaccines (2 - 05/16/2029 05/16/2019 Td) PNEUMOCOCCAL 0-64 YEARS Aged Out No longer eligible based COMBINED SERIES on patient's age to complete this topic documented as of this encounter Results Not on filedocumented in this encounter Insurance Payer Benefit Plan / Subscriber ID Effective Phone Address Type Group [facility] xxxxxxxxx 2019-Cade [place] Medicaid HEALTH [place] [facility] [place] [id number] MANAGED MEDICAID [place], [place]ID [phone] documented as of this encounter Advance Directives Name Relationship Healthcare Agent Relationship Communication Kelley Kyle Mother Primary healthcare agent
--- OUTSIDE RECORDS SUMMARY | 2019-07-28 10:05 | XMS REPORT | Summary of Care ---
:1995 Author Organization [facility] Address [address] [place] [address] Care Team Providers Name Role Phone Pcp, Patient Does Not Have A Unavailable Piotr Felipe [facility] Primary Care Provider Reason for Visit Reason Comments Abnormal Lab Anemia Encounter Details Date Type Department Care Team Description 07/13/2019 Telephone [facility]- Piotr Felipe, Abnormal Lab ( Anemia) [facility] [address] [place] [address] [address] [place] [phone] Allergies Active Allergy Reactions Severity Noted Date Comments Oseltamivir Phosphate Rash Medium 02/27/2019 documented as of this encounter (statuses as of 07/13/2019) Medications Medication Sig Dispensed Refills Start Date End Date Status vit Take 1 Packet by 30 Each 6 01/03/2019 Active 57-vnli-aatih-dha mouth daily. (SELECT-OB + DHA) 29 mg [...] as of this encounter (statuses as of 07/13/2019) Active Problems Problem Noted Date Desires (vaginal [...] as of this encounter (statuses as of 07/13/2019) Immunizations Name Administration Dates Next Due Tdap [...] 07/19/2019 Routine Visit OB Satellites Piotr Felipe, GENERAL AGENT [address] [place] [address] [phone] Health Maintenance Due Date Last Done Comments MENINGOCOCCAL B VACCINES (1 of 2 - 2005 Risk Bexsero 2-dose series) VARICELLA VACCINES (1 of 2 - 13+ 2008 2-dose series) HPV VACCINES (1 - Female 3-dose 2010 series) INFLUENZA VACCINE (#1) 2019 CHLAMYDIA SCREENING 01/02/2020 01/02/2019 PAP SMEAR 01/02/2022 01/02/2019 DTaP,Tdap,and Td Vaccines (2 - Td) 05/16/2029 05/16/2019 PNEUMOCOCCAL 0-64 YEARS COMBINED Aged Out No longer eligible based on SERIES patient's age to complete this topic documented as of this encounter Results Not on filedocumented in this encounter Visit Diagnoses Diagnosis Anemia of mother in , antepartum - Primary Anemia, antepartum documented in this encounter Insurance Payer Benefit Plan / Subscriber ID Effective Phone Address Type Group [facility] xxxxxxxxx 2019-Cade [place] Medicaid HEALTH CHOICE - HEALTH [place] [id number] [facility] MEDICAID [place], [place] MEDICAID [phone] documented as of this encounter Advance Directives Name Relationship Healthcare Agent Relationship Communication Kelley Wright Mother Primary healthcare agent
--- OUTSIDE RECORDS SUMMARY | 2019-07-28 10:05 | XMS REPORT | Summary of Care ---
:1995 Author Organization [facility] Address [address] [place] [address] Care Team Providers Name Role Phone Pcp, Patient Does Not Have A Unavailable Piotr Felipe Primary Care Provider Reason for Visit Reason Comments ROUTINE VISIT Encounter Details Date Type Department Care Team Description 07/19/2019 Routine [facility]- Piotr Felipe High risk , antepartum (Primary Dx); Visit TANESHA Jo Previous delivery affecting , antepartum; [address] [place] [address] Desires (vaginal after ) trial; [place]; [address] [place] contractions [phone] [id number] Allergies Active Allergy Reactions Severity Noted Date Comments Oseltamivir Phosphate Rash Medium 02/27/2019 documented as of this encounter (statuses as of 07/19/2019) Medications Medication Sig Dispensed Refills Start Date End Date Status vit Take 1 Packet by 30 Each 6 01/03/2019 Suspended 81-jkfa-ebadc-dha mouth daily. (SELECT-OB + DHA) 29 mg iron-1 mg -250 mg combo packIndications: High risk , antepartum ferrous sulfate 325 Take 1 tablet by 60 tablet 3 07/13/2019 Suspended mg (65 mg iron) mouth 2 (two) tabletIndications: times daily. Anemia of mother in , antepartum ascorbic acid, Take 1 tablet by 90 tablet 3 07/13/2019 Suspended vitamin C, 500 mg mouth 3 (three) tabletIndications: times daily. Anemia of mother in , antepartum documented as of this encounter (statuses as of 07/19/2019) Active Problems Problem Noted Date [place] contractions 07/19/2019 37 weeks gestation of 07/19/2019 Labor and delivery indication for care or intervention 07/19/2019 Decreased movements in third trimester 07/19/2019 Desires (vaginal after ) trial 07/12/2019 Abnormal [...] Sign Reading Time Taken Comments Blood Pressure 118/74 07/19/2019 11:15 AM CDT Pulse 111 07/19/2019 11:15 AM CDT Temperature 36.4 C (97.6 F) 07/19/2019 11:15 AM CDT Respiratory Rate 16 07/19/2019 11:15 AM CDT Oxygen Saturation - - Inhaled Oxygen Concentration - - Weight - - Height 162.6 cm (5' 4") 07/19/2019 11:15 AM CDT Body Mass Index - - documented in this encounter Progress Notes Piotr Felipe, TANESHA - 07/19/2019 1:45 PM CDT Chief complaint: Chief Complaint Patient presents with ROUTINE VISIT HPI CC: Follow Up Visit Mayte Wright is a 23 year old, , /White female. Patient's last menstrual period was 10/29/2018 (exact date). She is 37w4d with an intrauterine . Her estimated date of delivery is 08/05/2019, by Last Menstrual Period. She complains of irregular contractions. She reports +FMand denies LOF and bleeding today.Patient denies current or past physical, sexual or [...] file Gets together: Not on file Attends shinto service: Not on file Active member of [...] new labs Radiology No new radiology. Allergies Mayte is allergic to tamiflu [oseltamivir phosphate]. Medications Mayte has a current medication list which includes the following prescription( s): ascorbic acid (vitamin c), ferrous sulfate, and vit 70-zsrq-wxbru- dha. Review of Systems Eyes: Negative for visual disturbance. Cardiovascular: Negative for leg swelling. Gastrointestinal: Negative for abdominal pain, nausea and vomiting. Genitourinary: Negative for vaginal bleeding, vaginal discharge and pelvic pain. Neurological: Negative for headaches. BP 118/74 (BP Location: Right arm, Patient Position: Sitting, BP CUFF SIZE: Adult Small) | Pulse 111 | Temp 36.4 C (97.6 F) (Oral) | Resp 16 | Ht 5 ' 4" (1.626 m) | LMP 10/29/2018 (Exact Date)| BMI 35.70 kg/m Pregravid BMI: 30.0 Physical Exam PHYSICAL: General Exam: Neurological: Normal Abdomen: Normal Extremities: Normal Pelvic Exam: Vagina: Steam [employer] Power Superintendent present for the exam: Sallie Al RN Cervix: Closed/50/-3 Uterus: 37cm Weeks Assessment/Plan High risk , antepartum (primary encounter diagnosis) Previous delivery affecting , antepartum Desires (vaginal after ) trial Multiparity Comment:Routine Visit Plan: Denies zika virus risk, signs and symptoms such as fever,rash,joint pain, conjunctivitis (red eyes), muscle pain, headaches; outside [place] travel to areas affected by zika, and FOB exposure to zika.Educated on use of mosquito repellent. [place] contractions Comment: patient complaints of irregular Plan: NON-STRESS TEST Return to clinic in 1 weeks. Discussed treatment options. Medications as ordered. Reviewed patient instructions and provided printed copy. This visit did not involve counseling and coordination that comprised more than 50% of the visit time. TANESHA New 07/19/2019 12:24 PM documented in this encounter Plan of Treatment Health Maintenance Due Date Last Done Comments [...] Procedure Name Priority Date/Time Associated Diagnosis Comments NON-STRESS Routine 07/19/2019 12:12 [place] Results for this TEST PM CDT contractions procedure are in the results section. documented in this encounter Results NON-STRESS TEST (07/19/2019 12:12 PM CDT) Specimen Narrative Performed At [facility] reactive and reassuring. PACS Performing Organization Address City/State/Zipcode Phone Number PACS documented in this encounter Visit Diagnoses Diagnosis High risk , antepartum - Primary Previous delivery affecting , antepartum Previous delivery, antepartum condition or complication Desires (vaginal after ) trial Previous delivery, unspecified as to episode of care or not applicable [place] contractions Other threatened labor, unspecified as to episode of care documented in this encounter Insurance Payer Benefit Plan / Subscriber ID Effective Phone Address Type Group [facility] xxxxxxxxx 2019-Cade [place] Medicaid HEALTH CHOICE - HEALTH [place] [id number] MEDICAID [place], [place] MED[place]ID [phone] documented as of this encounter Advance Directives Name Relationship Healthcare Agent Relationship Communication Kelley Wright Mother Primary healthcare agent
--- OUTSIDE RECORDS SUMMARY | 2019-07-28 10:05 | XMS REPORT | Summary of Care ---
:1995 Author Organization [facility] Address [address] [place] [address] Care Team Providers Name Role Phone Pcp, Patient Does Not Have A Unavailable Piotr Felipe Primary Care Provider Reason for Visit Reason Comments Care Encounter Details Date Type Department Care Team Description 06/27/2019 Routine [facility]- Piotr Felipe High risk , antepartum (Primary Dx); Visit TANESHA Jo Previous delivery affecting , antepartum; [address] [place] [address]; [place], [place] Back pain, unspecified back location, unspecified back pain laterality, unspecified chronicity [address] [place], [place] [phone] [address] Allergies Active Allergy Reactions Severity Noted Date Comments Oseltamivir Phosphate Rash Medium 02/27/2019 documented as of this encounter (statuses as of 06/27/2019) Medications Medication Sig Dispensed Refills Start Date End Date Status vit Take 1 Packet by 30 Each 6 01/03/2019 Active 22-avpu-mcfvo-dha mouth daily. (SELECT-OB + DHA) 29 mg iron-1 mg -250 mg combo packIndications: High risk , antepartum documented as of this encounter (statuses as of 06/27/2019) Active Problems Problem Noted Date Abnormal maternal [...] as of this encounter (statuses as of 06/27/2019) Immunizations Name Administration Dates Next Due Tdap [...] Sign Reading Time Taken Comments Blood Pressure 104/61 06/27/2019 12:52 PM CDT Pulse 84 06/27/2019 12:52 PM CDT Temperature 36.3 C (97.4 F) 06/27/2019 12:52 PM CDT Respiratory Rate 16 06/27/2019 12:52 PM CDT Oxygen Saturation - - Inhaled Oxygen Concentration - - Weight 92.3 kg (203 lb 8 oz) 06/27/2019 12:52 PM CDT Height 162.6 cm (5' 4") 06/27/2019 12:52 PM CDT Body Mass Index 34.93 06/27/2019 12:52 PM CDT documented in this encounter Progress Notes Piotr Felipe, DEPARTMENT SECRETARY - 06/27/2019 12:45 PM CDT Chief complaint: Chief Complaint Patient presents with Care HPI CC: Follow Up Visit Mayte Wright is a 23 year old, , /White female. Patient's last menstrual period was 10/29/2018 (exact date). She is 34w3d with an intrauterine . Her estimated date of delivery is 08/05/2019, by Last Menstrual Period. She has no complaints today. She reports +FM and denies contractions, LOF and bleeding today. Reviewed OB/ER, PIH, labor and movement precautions. Encouragedpatient to go to [facility] for any signs and symptoms of labor (regular contractions, LOF, vaginal bleeding or decrease movement. Patient denies current or past physical, sexual [...] file Gets together: Not on file Attends amish service: Not on file Active member of [...] which includes the following prescription( s): vit 63-zkmt-xufma-dha. Review of Systems Eyes: Negative for visual disturbance. Cardiovascular: Negative for leg swelling. Gastrointestinal: Negative for abdominal pain, nausea and vomiting. Genitourinary: Negative for vaginal bleeding, vaginal discharge and pelvic pain. Neurological: Negative for headaches. BP 104/61 (BP Location: Right arm, Patient Position: Sitting, BP CUFF SIZE: Adult Small) | Pulse 84 | Temp 36.3 C (97.4 F) (Oral) | Resp 16 | Ht 5' 4 " (1.626 m) | Wt 203 lb 8 oz (92.3 kg) | LMP 10/29/2018 (Exact Date) | BMI 34.93 kg/m Pregravid BMI: 30.0 Physical Exam PHYSICAL: General Exam: Neurological: Normal Abdomen: Normal Extremities: Normal Pelvic Exam: Uterus: 35cm Weeks Assessment/Plan High risk , antepartum (primary encounter diagnosis) Previous delivery affecting , antepartum [place] Comment: Routine Visit Plan: POCT URINALYSIS W SPECIFIC GRAVITY, CBC WITH DIFF, GC & CHLAMYDIA AMPLIFIED ASSAY, GROUP B STREPTOCOCCUS BY PCR, CANCELED: GROUP B STREPTOCOCCUS BY PCR Denies zika virus risk, signs and symptoms such as fever,rash,joint pain, conjunctivitis (red eyes), muscle pain, headaches; outside [place] travel to areas affected by zika, and FOB exposure to zika.Educated on use of mosquito repellent. Back pain, unspecified back location, unspecified back pain laterality, unspecified chronicity Comment: patient complains of lower back pain on and off Plan: Reviewed OB/ER, PIH, labor and movement precautions. Encouraged patient to go to [facility] for any signs and symptoms of labor (regular contractions, LOF, vaginal bleeding or decrease movement. Return to clinic in 2 weeks. Discussed treatment options. Medications as ordered. Reviewed patient instructions and provided printed copy. This visit did not involve counseling and coordination that comprised more than 50% of the visit time. TANESHA New 06/27/2019 1:16 PM documented in this encounter Plan of Treatment Date Type Specialty Care Team Description 07/12/2019 Routine Visit [facility] Piotr Felipe FNP [address] [place] [address] [phone] Name Type Priority Associated Diagnoses Order Schedule CBC WITH DIFF LAB Routine High risk , 1 Occurrences starting antepartum 06/27/2019 until 07/28/2019 GC & CHLAMYDIA AMPLIFIED LAB Routine High risk , 1 Occurrences starting ASSAY antepartum 06/27/2019 until 07/28/2019 GROUP B STREPTOCOCCUS BY LAB Routine High risk , 1 Occurrences starting PCR antepartum 06/27/2019 until 07/28/2019 Health Maintenance Due Date Last Done Comments [...] Date/Time Associated Diagnosis Comments POCT URINALYSIS Routine 06/27/2019 12:54 PM High risk , Results for this CDT antepartum procedure are in the results section. documented in this encounter Results POCT URINALYSIS W SPECIFIC GRAVITY (06/27/2019 12:54 PM CDT) POCT U SP GRAV [...] . Negative - Negative POCT U COLOR . POCT U APPEAR Specimen Urine - URINE, CLEAN CATCH documented in this encounter Visit Diagnoses Diagnosis High risk , antepartum - Primary Previous delivery affecting , antepartum Previous delivery, antepartum condition or complication [address] Back pain, unspecified back location, unspecified back pain laterality, unspecified chronicity documented in this encounter Insurance Payer Benefit Plan / Subscriber ID Effective Phone Address Type Group [facility] xxxxxxxxx 2019-Cade [place] Medicaid HEALTH [employer] [id number] MANAGED MEDICAID [place], [place] [phone] documented as of this encounter Advance Directives Name Relationship Healthcare Agent Relationship Communication Kelley Wright Mother Primary healthcare agent
--- OUTSIDE RECORDS SUMMARY | 2019-07-28 10:05 | XMS REPORT | Summary of Care ---
:1995 Author Organization [facility] Address [address] [place] [address] Care Team Providers Name Role Phone Pcp, Patient Does Not Have A Unavailable Piotr Felipe Primary Care Provider Reason for Visit Reason Comments Care Encounter Details Date Type Department Care Team Description 07/12/2019 Routine [facility] [place] [facility]- Piotr Felipe High risk , antepartum (Primary Dx); Visit TANESHA Jo Previous delivery affecting , antepartum; [address] [place]; [place], [place] Desires (vaginal after ) trial; [address] [place], [place] Obesity in [phone] [address] [phone] Allergies Active Allergy Reactions Severity Noted Date Comments Oseltamivir Phosphate Rash Medium 02/27/2019 documented as of this encounter (statuses as of 07/12/2019) Medications Medication Sig Dispensed Refills Start Date End Date Status vit Take 1 Packet by 30 Each 6 01/03/2019 Active 05-nkba-vomqv-dha mouth daily. (SELECT-OB + DHA) 29 mg iron-1 mg -250 mg combo packIndications: High risk , antepartum documented as of this encounter (statuses as of 07/12/2019) Active Problems Problem Noted Date Desires (vaginal [...] as of this encounter (statuses as of 07/12/2019) Immunizations Name Administration Dates Next Due Tdap [...] Sign Reading Time Taken Comments Blood Pressure 105/66 07/12/2019 2:39 PM CDT Pulse 88 07/12/2019 2:39 PM CDT Temperature 36.6 C (97.8 F) 07/12/2019 2:39 PM CDT Respiratory Rate 16 07/12/2019 2:39 PM CDT Oxygen Saturation - - Inhaled Oxygen Concentration - - Weight 94.3 kg (208 lb) 07/12/2019 2:39 PM CDT Height 162.6 cm (5' 4") 07/12/2019 2:39 PM CDT Body Mass Index 35.7 07/12/2019 2:39 PM CDT documented in this encounter Progress Notes Piotr Felipe FNP - 07/12/2019 3:30 PM CDT Chief complaint: Chief Complaint Patient presents with Care HPI CC: Follow Up Visit Mayte Wright is a 23 year old, , /White female. Patient's last menstrual period was 10/29/2018 (exact date). She is 36w4d with an intrauterine . Her estimated date of delivery is 08/05/2019, by Last Menstrual Period. She has no complaints today. She reports +FM and denies contractions, LOF and bleeding today. Reviewed OB/ER, PIH, labor and movement precautions. Encouragedpatient to go to [facility] for any signs and symptoms of labor [...] file Gets together: Not on file Attends sabianism service: Not on file Active member of [...] control/protection: None Comment: last intercourse 12/31/18 Labs Labs are pending. Radiology No new radiology. Allergies Mayte is allergic to tamiflu [oseltamivir phosphate]. Medications Mayte has a current medication list which includes the following prescription( s): vit 81-vifn-rmubt-dha. Review of Systems Eyes: Negative for visual disturbance. Cardiovascular: Negative for leg swelling. Gastrointestinal: Negative for abdominal pain, nausea and vomiting. Genitourinary: Negative for vaginal bleeding, vaginal discharge and pelvic pain. Neurological: Negative for headaches. BP 105/66 | Pulse 88 | Temp 36.6 C (97.8 F) | Resp 16 | Ht 5' 4" (1.626 m) | Wt 208 lb (94.3 kg) | LMP 10/29/2018 (Exact Date) | BMI 35.70 kg/m Pregravid BMI: 30.0 Physical Exam PHYSICAL: General Exam: Neurological: Normal Abdomen: Normal Extremities: Normal Pelvic Exam: Vagina: Software Configuration Analyst present for the exam: TANESHA Tanner student Cervix: Closed/50/-3 Membrane status: Intact Uterus: 35cm Weeks Assessment/Plan High risk , antepartum (primary encounter diagnosis) Previous delivery affecting , antepartum [place] Desires (vaginal after ) trial Comment: Routine Visit Plan: CBC WITH DIFF, GC & CHLAMYDIA AMPLIFIED ASSAY, GROUP B STREPTOCOCCUS BY PCR, CBC WITH DIFFERENTIAL, POCT URINALYSIS W SPECIFIC GRAVITY Denies zika virus risk, signs and symptoms such as fever,rash,joint pain, conjunctivitis (red eyes), muscle pain, headaches; outside [place] travel to areas affected by zika, and FOB exposure to zika.Educated on use of mosquito repellent. Obesity in Comment: See BMI Plan: Patient encouraged to limit weight gain and sensible diet. Return to clinic in 1 weeks. Discussed treatment options. Medications as ordered. Reviewed patient instructions and provided printed copy. This visit did not involve counseling and coordination that comprised more than 50% of the visit time. TANESHA New 07/12/2019 2:56 PM documented in this encounter Plan of Treatment Name Type Priority Associated Diagnoses Date/Time CBC WITH DIFF LAB Routine High risk , 07/12/2019 2:39 PM antepartum CDT GC & CHLAMYDIA AMPLIFIED LAB Routine High risk , 07/12/2019 2:39 PM ASSAY antepartum CDT GROUP B STREPTOCOCCUS BY LAB Routine High risk , 07/12/2019 2:39 PM PCR antepartum CDT CBC WITH DIFFERENTIAL LAB Routine High risk , 07/12/2019 2:39 PM antepartum CDT Health Maintenance Due Date Last Done Comments [...] Date/Time Associated Diagnosis Comments POCT URINALYSIS Routine 07/12/2019 2:42 PM High risk , Results for this CDT antepartum procedure are in the results section. documented in this encounter Results POCT URINALYSIS W SPECIFIC GRAVITY (07/12/2019 2:42 PM CDT) POCT U SP GRAV . [...] Previous delivery, antepartum condition or complication [place] Desires (vaginal after ) trial Previous delivery, unspecified as to episode of care or not applicable Obesity in Obesity complicating , childbirth, or the puerperium, unspecified as to episode of care or not applicable documented in this encounter Insurance Payer Benefit Plan / Subscriber ID Effective Phone Address Type Group [facility] xxxxxxxxx 2019-Cade [place] Medicaid [employer] [id number] MANAGED MEDICAID [place], [place] [phone] documented as of this encounter Advance Directives Name Relationship Healthcare Agent Relationship Communication Kelley Wright Mother Primary healthcare agent
--- OUTSIDE RECORDS SUMMARY | 2019-07-28 10:05 | XMS REPORT | Summary of Care ---
:1995 Author Organization [facility] Address [address] [place] [address] Care Team Providers Name Role Phone Pcp, Patient Does Not Have A Unavailable Piotr Felipe Primary Care Provider Reason for Visit Reason Comments Error Encounter Details Date Type Department Care Team Description 07/14/2019 Telephone [facility] Piotr Felipe FNP Error [address] [facility] [address] [place] [address] [place], [place] [id number] Allergies Active Allergy Reactions Severity Noted Date Comments Oseltamivir Phosphate Rash Medium 02/27/2019 documented as of this encounter (statuses as of 07/14/2019) Medications Medication Sig Dispensed Refills Start Date End Date Status vit Take 1 Packet by 30 Each 6 01/03/2019 Active 12-wzne-jpxez-dha mouth daily. (SELECT-OB + DHA) 29 mg [...] as of this encounter (statuses as of 07/14/2019) Active Problems Problem Noted Date Desires (vaginal [...] as of this encounter (statuses as of 07/14/2019) Immunizations Name Administration Dates Next Due Tdap [...] 07/19/2019 Routine Visit [facility] Piotr Felipe, PROJECT MGR [address] [place] [address] [phone] Health Maintenance Due Date Last Done Comments [...] Subscriber ID Effective Phone Address Type Group [facility] xxxxxxxxx 2019-Cade [place] Medicaid HEALTH CHOICE - [place] [id number] MANAGED MEDICAID [place], [place] [phone] documented as of this encounter Advance Directives Name Relationship Healthcare Agent Relationship Communication Kelley Wright Mother Primary healthcare agent
--- OUTSIDE RECORDS SUMMARY | 2019-07-28 10:05 | XMS REPORT | Summary of Care ---
:1995 Author Organization [facility] Address [address] [place] [address] Care Team Providers Name Role Phone Pcp, Patient Does Not Have A Unavailable Piotr Felipe Primary Care Provider Reason for Visit Reason Comments Care Encounter Details Date Type Department Care Team Description 07/12/[address] [facility]- Piotr Felipe High risk , antepartum (Primary Dx); Visit TANESHA Jo Previous delivery affecting , antepartum; [address] [place] [address]; [place], [place] Desires (vaginal after ) trial; [address] [place], [place] Obesity in [phone] [address] [phone] Allergies Active Allergy Reactions Severity Noted Date Comments Oseltamivir Phosphate Rash Medium 02/27/2019 documented as of this encounter (statuses as of 07/12/2019) Medications Medication Sig Dispensed Refills Start Date End Date Status vit Take 1 Packet by 30 Each 6 01/03/2019 Active 21-cqea-hzbqy-dha mouth daily. (SELECT-OB + DHA) 29 mg [...] and movement precautions. Encouragedpatient to go to [facility] for any signs and symptoms of labor [...] file Gets together: Not on file Attends jew service: Not on file Active member of [...] which includes the following prescription( s): vit 30-znmr-qywtd-dha. Review of Systems Eyes: Negative for visual [...] Abdomen: Normal Extremities: Normal Pelvic Exam: Vagina: Inserter Operator present for the exam: TANESHA Tanner student [...] Description 07/19/2019 Routine Visit [facility] Piotr Felipe FNP [address] [place] [address] [phone] Name Type Priority Associated Diagnoses Date/Time CBC [...] ID Effective Phone Address Type Group Dates [facility] xxxxxxxxx 2019-Cade [place] Medicaid [employer] [id number] MANAGED MEDICAID [place] [phone] documented as of this encounter Advance Directives Name Relationship Healthcare Agent Relationship Communication Kelley Kyle Mother Primary healthcare agent
--- OUTSIDE RECORDS SUMMARY | 2019-07-28 10:05 | XMS REPORT | Summary of Care ---
:1995 Author Organization [facility] Address [address] [place] [address] Care Team Providers Name Role Phone Pcp, Patient Does Not Have A Unavailable Piotr Felipe [facility] Primary Care Provider Reason for Visit Reason Comments Abnormal Lab Anemia Encounter Details Date Type Department Care Team Description 07/13/2019 Telephone [facility]- Piotr Felipe, Abnormal Lab ( Anemia) [facility] [address] [place] [address] [address] [place] [address] Allergies Active Allergy Reactions Severity Noted Date Comments Oseltamivir Phosphate Rash Medium 02/27/2019 documented as of this encounter (statuses as of 07/13/2019) Medications Medication Sig Dispensed Refills Start Date End Date Status vit Take 1 Packet by 30 Each 6 01/03/2019 Active 16-ggmy-tqxjn-dha mouth daily. (SELECT-OB + DHA) 29 mg [...] 07/19/2019 Routine Visit [facility] Piotr Felipe, CHANCELLOR [address] [place] [address] [phone] Health Maintenance Due Date Last Done Comments [...] Subscriber ID Effective Phone Address Type Group [facility] xxxxxxxxx 2019-Cade [place] Medicaid HEALTH CHOICE - HEALTH [employer] [id number] [place] [phone] documented as of this encounter Advance Directives Name Relationship Healthcare Agent Relationship Communication Kelley Wright Mother Primary healthcare agent
--- OUTSIDE RECORDS SUMMARY | 2019-07-28 10:06 | XMS REPORT | Summary of Care ---
:1995 Author Organization [facility] Address [address] [place] [address] Care Team Providers Name Role Phone Pcp, Patient Does Not Have A Unavailable Piotr Felipe Primary Care Provider Reason for Visit Reason Comments Rx Concern/Question Encounter Details Date Type Department Care Team Description 07/21/2019 Telephone [facility] Tammy Decker, Rx Concern/Question [id number] [place] [id number] [place] [address] floor [phone] [place] [address] [phone] Allergies Active Allergy Reactions Severity Noted Date Comments Oseltamivir Phosphate Rash Medium 02/27/2019 documented as of this encounter (statuses as of 07/24/2019) Medications Medication Sig Dispensed Refills Start Date End Date Status ascorbic acid, Take 1 tablet by 90 tablet 3 07/13/2019 Active vitamin C, 500 mg mouth 3 (three) tabletIndications times daily. : Anemia of mother in , antepartum vitamin Take 1 tablet by 100 tablet 3 07/21/2019 Active w/FA mouth daily. tabletIndications : Status post repeat low transverse section docusate calcium Take 1 capsule by 60 capsule 1 07/21/2019 Active 240 mg mouth once daily as capsuleIndication needed for s: Status post Constipation. repeat low transverse section ferrous sulfate Take 1 tablet by 60 tablet 2 07/21/2019 Active 325 mg (65 mg mouth 2 (two) times iron) daily. tabletIndications : Status post repeat low transverse section ibuprofen 600 mg Take 1 tablet by 60 tablet 1 07/21/2019 Active tabletIndications mouth every 6 (six) : Status post hours as needed for repeat low Pain (scale 1-3) or transverse Pain (scale 4-6) section (Pain). Take with food or milk. HYDROcodone-aceta Take 1 tablet by 28 tablet 0 07/21/2019 07/28/2019 Active minophen 5-325 mg mouth every 6 (six) tabletIndications hours as needed : Status post (Pain) for up to 7 repeat low days. Do not exceed transverse 3 grams of section acetaminophen in 24 hours. documented as of this encounter (statuses as of 07/24/2019) Active Problems Problem Noted Date Kaz Bonilla contractions 07/19/2019 37 weeks gestation of 07/19/2019 Labor and delivery indication for care or intervention 07/19/2019 Decreased movements in third trimester 07/19/2019 Obesity (BMI 30-39.9) 07/19/2019 Desires (vaginal after ) trial 07/12/2019 Abnormal maternal glucose tolerance, antepartum 04/26/2019 Overview: 3hr GTT ordered Cramps of lower extremity 02/27/2019 Maternal varicella, non-immune 01/03/2019 Overview: Address in High risk , antepartum 01/02/2019 Previous delivery affecting , antepartum 01/02/2019 [place] 01/02/2019 Back pain, unspecified back location, unspecified back pain laterality, 2018 unspecified chronicity documented as of this encounter (statuses as of 07/24/2019) Immunizations Name Administration Dates Next Due Tdap 05/16/2019 documented as of this encounter Social History Tobacco Use Types Packs/Day Years Used Date Never Smoker Smokeless Tobacco: Never Used Alcohol Use Drinks/Week oz/Week Comments No Sex Assigned at Date Recorded Not on file Job Start Date Occupation Industry Not on file Not on file Not on file Travel History Travel Start Travel End No recent travel history available. documented as of this encounter Last Filed Vital Signs Not on filedocumented in this encounter Plan of Treatment Date Type Specialty Care Team Description 07/27/2019 Nurse Visit [facility] Visit, [place] Nurse 08/10/2019 Routine Visit [facility] Piotr Felipe, CIGARETTE FILTER INSPECTOR [address] [place] [address] [phone] Health Maintenance Due Date Last Done Comments MENINGOCOCCAL B VACCINES (1 of 2005 2 - Risk Bexsero 2-dose series) INFLUENZA VACCINE (#1) 2019 HPV VACCINES (2 - Female 08/19/2019 07/22/2019 3-dose series) VARICELLA VACCINES (2 of 2 - 08/19/2019 07/22/2019 13+ 2-dose series) CHLAMYDIA SCREENING 07/12/2020 07/12/2019, 01/02/2019 PAP SMEAR 01/02/2022 01/02/2019 DTaP,Tdap,and Td Vaccines (2 - 05/16/2029 05/16/2019 Td) PNEUMOCOCCAL 0-64 YEARS Aged Out No longer eligible based COMBINED SERIES on patient's age to complete this topic documented as of this encounter Results Not on filedocumented in this encounter Insurance Payer Benefit Plan / Subscriber ID Effective Phone Address Type Group Dates [facility] xxxxxxxxx 2019-Cade [place] Medicaid HEALTH CHOICE - HEALTH CHOICE nt [id number] MANAGED MEDICAID [place], [place] MED[place]ID [phone] documented as of this encounter Advance Directives Name Relationship Healthcare Agent Relationship Communication Kelley Wright Mother Primary healthcare agent
--- OUTSIDE RECORDS SUMMARY | 2019-07-28 10:06 | XMS REPORT | Summary of Care ---
:1995 Author Organization [facility] Address [address] [place] [id number] Care Team Providers Name Role Phone Pcp, Patient Does Not Have A Unavailable Piotr Felipe Primary Care Provider Reason for Referral (Routine) Status Reason Specialty Diagnoses / Referred By Referred To Procedures Contact Contact New Request OB Satellites Diagnoses Status post repeat low transverse section Ivett No, Procedures DISCHARGE FOLLOW-UP: [facility] [address] [place] [id number] [place] [id number] Reason for Visit Auth/Cert Status Reason Specialty Diagnoses / Referred By Contact Referred To Contact Procedures Obstetrics Diagnoses labor [address] [place] [phone] Encounter Details Date Type Department Care Team Description 07/19/2019 - Hospital Encounter Mother Baby Unit [facility] 37 weeks gestation 07/22/2019 (J7C) Brianne, of [address] [place] [address] [id number] [place], [place] [phone] [id number] Allergies Active Allergy Reactions Severity Noted Date Comments Oseltamivir Phosphate Rash Medium 02/27/2019 documented as of this encounter (statuses as of 07/22/2019) Medications Medication Sig Dispensed Refills Start Date End Date Status ascorbic acid, Take 1 tablet by 90 tablet 3 07/13/2019 Active vitamin C, 500 mouth 3 (three) mg times daily. tabletIndication s: Anemia of mother in , antepartum vitamin Take 1 tablet by 100 tablet 3 07/21/2019 Active w/FA mouth daily. tabletIndication s: Status post repeat low transverse section docusate calcium Take 1 capsule by 60 capsule 1 07/21/2019 Active 240 mg mouth once daily capsuleIndicatio as needed for ns: Status post Constipation. repeat low transverse section ferrous sulfate Take 1 tablet by 60 tablet 2 07/21/2019 Active 325 mg (65 mg mouth 2 (two) iron) times daily. tabletIndication s: Status post repeat low transverse section ibuprofen 600 mg Take 1 tablet by 60 tablet 1 07/21/2019 Active tabletIndication mouth every 6 s: Status post (six) hours as repeat low needed for Pain transverse (scale 1-3) or section Pain (scale 4-6) (Pain). Take with food or milk. HYDROcodone-acet Take 1 tablet by 28 tablet 0 07/21/2019 Active aminophen 5-325 mouth every 6 9 mg (six) hours as tabletIndication needed (Pain) for s: Status post up to 7 days. Do repeat low not exceed 3 grams transverse of acetaminophen section in 24 hours. vit Take 1 Packet by 30 Each 6 01/03/2019 Discontinued 21-rtey-mgxxx-dh mouth daily. 9 a (SELECT-OB + DHA) 29 mg iron-1 mg -250 mg combo packIndications: High risk , antepartum ferrous sulfate Take 1 tablet by 60 tablet 3 07/13/2019 Discontinued 325 mg (65 mg mouth 2 (two) 9 iron) times daily. tabletIndication s: Anemia of mother in , antepartum documented as of this encounter (statuses as of 07/22/2019) Active Problems Problem Noted Date [place] contractions 07/19/2019 37 weeks gestation of [...] unspecified back pain laterality, 2018 unspecified chronicity Comments Yes documented as of this encounter (statuses as of 07/22/2019) Immunizations Name Administration Dates Next Due HPV9 07/22/2019 Tdap 05/16/2019 Varicella (varivax)(chicken pox) 07/22/2019 documented as of this encounter Social History Tobacco Use Types Packs/Day Years Used Date Never Smoker Smokeless Tobacco: Never Used Alcohol Use Drinks/Week oz/Week Comments No Comments Yes Sex Assigned at Date Recorded Not on file Job Start Date Occupation Industry Not on file Not on file Not on file Travel History Travel Start Travel End No recent travel history available. documented as of this encounter Last Filed Vital Signs Vital Sign Reading Time Taken Comments Blood Pressure 103/60 07/22/2019 8:00 AM CDT Pulse 83 07/22/2019 8:00 AM CDT Temperature 36.8 C (98.2 F) 07/22/2019 8:00 AM CDT Respiratory Rate 19 07/22/2019 8:00 AM CDT Oxygen Saturation 100% 07/22/2019 8:00 AM CDT Inhaled Oxygen Concentration - - Weight 94.3 kg (208 lb) 07/19/2019 5:30 PM CDT Height - - Body Mass Index 35.7 07/19/2019 11:15 AM CDT documented in this encounter Discharge Instructions Asiya Weathers RN - 07/22/2019 Patient Discharge Instructions Instrucciones para el paciente al selina de henry Rubella: Rubella screen IgG (no units) Date Value 01/02/2019 Positive Hgb/HCT: HGB (g/dL) Date Value 07/21/2019 8.6 (L) , HCT (%) Date Value 07/21/2019 29.4 (L) ABO Type: ABO & RH (no units) Date Value 07/19/2019 O POSITIVE Patient Discharge Instructions Take Home Medications These are medications ordered for you by your healthcare provider. Do not take any other medicationsor supplements unless advised by your healthcare provider. Medicamentos tomados en casa: Estos son medicamentos ordenados por augustin proveedor de servicios mdicos. No tome ningn otro medicamento o suplemento a menos que sea aconsejado por augustin proveedor. Current Discharge Medication List START taking these medications Details docusate calcium (SURFAK) 240 mg Take 240 mg by mouth once daily as needed for Constipation. Qty: 60 capsule, Refills: 1 Start date: 07/21/2019 Associated Diagnoses: Status post repeat low transverse section HYDROcodone-acetaminophen (NORCO 5) 1 tablet Take 1 tablet by mouth every 6 (six ) hours as needed (Pain). Do not exceed 3 grams of acetaminophen in 24 hours. Qty: 28 tablet, Refills: 0 Start date: 07/21/2019, End date: 07/28/2019 Associated Diagnoses: Status post repeat low transverse section ibuprofen (IBU) 600 mg Take 600 mg by mouth every 6 (six) hours as needed for Pain (scale 1-3) or Pain (scale 4-6) (Pain). Take with food or milk. Qty: 60 tablet, Refills: 1 Start date: 07/21/2019 Associated Diagnoses: Status post repeat low transverse section vitamin w/FA (PRENATABS RX) 1 tablet Take 1 tablet by mouth daily. Qty: 100 tablet, Refills: 3 Start date: 07/21/2019 Associated Diagnoses: Status post repeat low transverse section CONTINUE these medications which have CHANGED Details ferrous sulfate 325 mg Take 325 mg by mouth 2 (two) times daily. Qty: 60 tablet, Refills: 2 Start date: 07/21/2019 Associated Diagnoses: Status post repeat low transverse section CONTINUE these medications which have NOT CHANGED Details ascorbic acid (vitamin C) (VITAMIN C) 500 mg Take 500 mg by mouth 3 (three) times daily. Qty: 90 tablet, Refills: 3 Associated Diagnoses: Anemia of mother in , antepartum STOP taking these medications vit 26-hgbr-lnvnj-dha (SELECT-OB + DHA) 1 Packet Comments: Reason for Stopping: Follow-up Appointments/Jayla citas: The following appointments have been made for you: Las siguientes citas se hicieron para usted: Provider Place Date Time Follow instructions as indicated below: Siga las instrucciones que se le indican a continuacin: Discharge Orders Regular Diet; Texture: Regular. Texture Regular. Diabetic: No Discharge Condition - GOOD Discharge Condition: GOOD Discharge Activity: - Ambulate with Pelvic Rest x 6 weeks DISCHARGE FOLLOW-UP: [facility] Order Comments: For Patients - return to clinic in 5-7 days for staple removal. If [facility] clinic, Nursing Staff to call clinic for follow-up appointment. Follow-up with: TARAS Campuzano When: 1 Week Patient Discharge Instructions - Delivery Order Comments: Keep incision clean and dry with soap and water in shower, dry gently with clean towel. Return to ER if Temp > 100.4 F, redness around or pus from incision, headache unresolved withpain medications, visual disturbances including double or blurry vision, seeing spots, or upper abdominal pain. Return to clinic for staple removal 5 to 7 days after the of your baby. Pelvic rest4 to 6 weeks, and no heavy lifting. Your appointment has been made for you. Weight: In general, sudden weight gains or losses should be reported to your provider. Cardiac patients should weigh daily and notify their provider for a weight gain of 3 pounds per day or 5 pounds per week. Peso: En general, la perdida aumento repentino de peso deber ser reportado a augustin proveedor. Lospacientes cardiacos, debern pesarse a diario y notificar a augustin proveedor si tienen un aumento de 3 libras por da o 5 libras por semana. Tobacco Avoidance: Follow recommendations below Para evitar el Tabaco: Siga las recomendaciones a continuacin. To schedule other appointments, call the [facility] at [phone] or1- . You may also make appointments online by going to [email or web address] and follow the Request Appointment quicklink. Para programar otras citas, llame al [facility] de [facility] al o al . Anthony johnson puede hacer citas por internet, vaya a [email or web address] y jacey la conexin con solicitud citas ( Request Appointment) For questions regarding follow-up instructions call the [facility] at or Para preguntas relacionadas con las instrucciones del seguimiento llame al [phone] For worsening symptoms/changing condition/problems or questions: Si los sntomas empeoran/cambios de condicin/problemas o preguntas, llame: Non-emergency/urgent: Call the [facility] [place] [facility] at or 1- or No emergencia/urgencia: Llame al [facility] Emergency: Go to the closest emergency room or call [phone] Emergencia: Vaya a la praveena de emergencia ms patel o llame al [phone] Our Goal is to Always Provide You with Very Good Care! We will be mailing you a survey, Please complete and return at your convenience. Thank You Nuestra Downey es Ofrecerle a Usted Siempre, rex muy buena atencin. Nosotros le enviaremos rex encuesta, por favor llnela y regrsela segn pueda. Edu Multidisciplinary Discharge Instructions (may include diet, dressing changes, activity limits, written materials given to patient: DIET: Eat a well balanced diet; drink 6-8 glasses of fluids daily; eat fruits and green, leafy vegetables. DAILY ACTIVITIES: 1. As much as you feel able to do. Rest when you are tired. 2. Limitations: Specify; No heavy lifting other than your baby for 4 weeks if you had surgery. TREATMENT AT HOME 1. Use a well-fitting bra to prevent breast engorgement 2. Resume intercourse as instructed by your physician. 3. Do not use douches or tampons for four weeks. 4. To help prevent urinary tract infection; after each urination and bowelmovement, wipe and dry from front to back and change peripad. 5. Follow discharge instructions regarding baby care. 6. Follow family planning instructions. IMMEDIATE TREATMENT Call Clinic or Your Physician 1. Increase in pain and tenderness of uterus. 2. Increased vaginal bleeding (bright red blood which soaks 2 pads in 1hour or pass large clots). 3. Foul smelling vaginal discharge. 4. Burning in the tube that empties the urine from the bladder. 5. Painful breast engorgement or cracked nipples. 6. Pain, discharges, or gaping incision. 7. Temperature greater than 38.0C or 100.4F 8. Pain and tenderness of calf or thigh muscles. 9. No bowel movements in 4 days. Instrucciones multidisciplinarias para selina de henry (pueden incluir, dieta, cambio de gasas, limitacin de actividades, material escrito para entregar al paciente): DIETA: Mantenga rex dieta rashel balanceada; tome de 6 a 8 vasos de lquidos al da; coma frutas, hortalizas y vegetales. ACTIVIDADES DIARIAS: 1. Mantngalas mientras pueda. Descanse si se siente cansada, 2. Limitaciones: No levante nada ms pesado que augustin hijo por cuatro semanas si tuvo rex operacin. AUGUSTIN CUIDADO EN CASA: 1. Use un sostn que le ajuste rashel para evitar que se le llenen demasiados los pechos. 2. Resuma jayla relaciones sexuales segn le indique augustin doctor. 3. No use duchas ni tampones por 4 semanas. 4. Para ayudar a prevenir infecciones urinarias, despus de orinar y defecar, lmpiese de adelante hacia atrs y cmbiese la toalla sanitaria. 5. Siga las instuciones sobre el cuidado del beb. 6. Siga las instrucciones sobre planificacin familiar. TRATAMIENTO INMEDIATOLlame a la clnica o a augustin doctor si: 1. Aumenta el dolor o sensibilidad en la matriz. 2. Aumenta el sangramiento vaginal (gavin samson brillante que pueda llenar 2 toallas sanitarias en rex hora o si tiene cogulos grandes). 3. Tiene desecho vaginal con mal olor. 4. Tiene ardor cuando orina. 5. Siente dolor en los pechos porque estn muy llenos o grietas en los pezones. 6. Tiene dolor, drenaje o que se le habr la incisin. 7. Tiene temperatura mayor de 38.0 grados centgrados o ms de 100.4 grados Farenheit. 8. Tiene dolor sensibilidad en los msculos de las pantorrillas o de los muslos. 9. Tiene estreimiento por 4 tsang. Tobacco Avoidance Exposure to tobacco either from smoking or from second hand (environmental) smoke or smokeless tobacco (snuff) is damaging to your health. This information is to encourage everyone to avoid tobacco exposure. It is recommended that you: ? If you smoke or use smokeless tobacco, we encourage you to quit. ? If you have already quit smoking, continue your good work! ? If you do not smoke or use smokeless tobacco, do not start. ? Avoid secondhand smoke. Additional Resources You may want to contact these organizations for further information on smoking and how to quit. [place] [employer] Association, http://www.lungusa.org/stop-smoking/ [place] Cancer Society, http://www.cancer.org/Healthy/StayAwayfromTobacco/index [place] Heart Association, http://www.heart.org/HEARTORG/GettingHealthy/ QuitSmoking/Quit-Smoking_UC_001085_SubHomePage.jsp Evitar El Tabaco La exposicin al tabaco ya sea por fumar o por el humo de segunda mano (humo ambiental) y el tabacosin humo es perjudicial para augustin fabi. Esta informacin es para animar a todos para que eviten la exposicin al tabaco. Se recomienda: Si usted fuma o usa tabaco sin humo le animamos a dejarlo. Si pedraza dejado de fumar, continu con augustin buen trabajo! Si usted no fuma o usa tabaco sin humo no empiece a hacerlo. Evitar el humo de segunda mano. Recursos Adicionales: Usted puede comunicarse con estas organizaciones para tener ms informacin sobre fumar y dior dejar de hacerlo. [place] Lung Association (Asociacin Americana del Pulmn), http:// www.lungusa.org/stop-smoking/ [place] Cancer Society (Sociedad Americana del Cncer), http://www.cancer.org/ Healthy/StayAwayfromTobacco/index [place] Heart Association (Asociacin Americana del Corazn), http:// www.heart.org/HEARTORG/GettingHealthy/QuitSmoking/Quit-Smoking_[facility]_001085_ SubHomePage.jsp AttachmentsThe following attachments cannot be sent through Care Everywhere., After (Croatian), Breast Care After (Croatian) Depression, Understanding (Croatian), Common Questions About (Croatian), Holding Your Baby While (Croatian), Nutrition While (Croatian)Incision Care (Croatian)Bottle-feed, How to (Croatian) documented in this encounter Progress Notes Kelley Motley, WHCNP - 07/22/2019 8:22 AM CDT [facility] Registered Nurse Faculty Note: S: No complaints. Tolerating PO liquids. (+)flatus. No excessive vaginal bleeding. Good pain control on PO meds. Pt feeling well. O- Gen: NAD, AOX3 CV/Pulm: RRR/CTAB Abd: Soft, ATTP, BS (+), fundus firm Inc: C/D/I Ext: No calf tenderness Vitals: Patient Vitals for the past 24 hrs: BP Temp Temp src Pulse Resp SpO2 07/22/19 0000 114/66 36.6 C (97.9 F) Oral 90 19 100 % 07/21/19 2000 110/65 36.6 C (97.8 F) Oral 86 19 99 % 07/21/19 1700 103/66 36.5 C (97.7 F) Oral 81 20 100 % 07/21/19 1300 114/63 36.7 C (98.1 F) Oral 98 19 99 % Intake/Output Summary (Last 24 hours) at 07/22/2019 0822 Last data filed at 07/22/2019 0514 Gross per 24 hour Intake 1000 ml Output 2500 ml Net -1500 ml LABS: WBC (10*3/L) Date Value 07/21/2019 18.02 (H) 07/12/2019 11.89 (H) HGB (g/dL) Date Value 07/21/2019 8.6 (L) 07/12/2019 9.5 (L) HCT (%) Date Value 07/21/2019 29.4 (L) 07/12/2019 32.5 (L) PLT (10*3/L) Date Value 07/21/2019 118 (L) 07/12/2019 137 (L) No results found for: AST, ALT, LDH, CREAT, URICACID, UPROTEIN MEDICATIONS: Current Facility-Administered Medications Medication Dose Route Frequency Last Rate Last Dose bisacodyl (DULCOLAX) suppository 10 mg 10 mg Rectal QDAILYPRN diphenhydrAMINE (BENADRYL) 25 mg in NaCl 0.9% (NS) piggyback 25 mg IV Piggyback Q6HPRN diphenhydrAMINE (BENADRYL) tablet 25 mg 25 mg Oral Q6HPRN docusate calcium (SURFAK) capsule 240 mg 240 mg Oral QDAILYPRN 240 mg at 07/22/19 0747 human papillomav vac,9-roro(PF) (GARDASIL 9 (PF)) vial 0.5 mL 0.5 mL Intramuscular ONCE-PRIOR TODISCHARGE HYDROcodone-acetaminophen (NORCO 5) 5-325 mg tablet 1 tablet 1 tablet Oral Q6HPRN 1 tablet at07/21/19 0810 HYDROcodone-acetaminophen (NORCO 5) 5-325 mg tablet 2 tablet 2 tablet Oral Q6HPRN 2 tablet at07/22/19 0514 ibuprofen (IBU) tablet 600 mg 600 mg Oral Q6HPRN 600 mg at 07/22/19 0747 magnesium hydroxide (MILK OF MAGNESIA) 400 mg/5 mL suspension 30 mL 30 mL Oral QDAILYPRN ondansetron (ZOFRAN (PF)) injection 4 mg 4 mg Slow IV Push Q8HPRN rho(D) immune globulin (RHOGAM) syringe 300 mcg 300 mcg Intramuscular ONCE simethicone (GAS RELIEF) chewable tablet 160 mg 160 mg Oral PC+HSPRN 160 mg at 07/22/19 0747 varicella virus vaccine live (VARIVAX (PF)) injection 0.5 mL 0.5 mL Subcutaneous ONCE-PRIOR TO DISCHARGE Assessment: Mayte Wright is a 23 year old POD#2 s/p repeat LTCS on 07/21/2019 at 2250 at 37w5d for failed TOLAC, uncomplicated. Patient is recovering well: hemodynamically stable, good UOP, pain well-controlled, vitals within normal limits. Plan: Postoperative Review: - Admitted for: TOLAC - Surgical procedure: Repeat Lower uterine transverse section with no extension - Skin incision: pfannenstiel - Closure: sutures - Estimated blood loss: 700 mL - Intraoperative Complications: none - Clinical trials: TXA - Urine output: Adequate - Preop H/H: 9.5/32.5 - Postop H/H: 8.6/29.4 Postoperative care: - s/p c/s . Dressing dry and intact. No s/sx of infection at this visit. Denies any problems. VSS stable. labs was reviewed from a coinciding resident note from same day visit. Post-op instructions given and pt understands. Ambulation encouraged. ARIELLE Francis #[id number] 07/22/2019 8:22 AM Josefina Lyn MD - 7:25 AM CDT POST-OPERATIVE PROGRESS NOTE 07/22/2019 7:25 AM Subjective: Overnight patient had no complaints. Her pain is well controlled on oral pain medications. She is tolerating a regular diet. She has passed flatus. She is ambulating without difficulty. Lochia is Scant. She is urinating without connell. Patient denies chest pain, SOB, n/v, headache, RUQ pain, vision changes, dizziness. Objective: VITALS: Patient Vitals for the past 24 hrs: BP Temp Temp src Pulse Resp SpO2 07/22/19 0000 114/66 36.6 C (97.9 F) Oral 90 19 100 % 07/21/19 2000 110/65 36.6 C (97.8 F) Oral 86 19 99 % 07/21/19 1700 103/66 36.5 C (97.7 F) Oral 81 20 100 % 07/21/19 1300 114/63 36.7 C (98.1 F) Oral 98 19 99 % 07/21/19 0800 109/63 36.6 C (97.8 F) Oral 87 20 99 % I/O: Intake/Output Summary (Last 24 hours) at 07/22/2019 0725 Last data filed at 07/22/2019 0514 Gross per 24 hour Intake 1125 ml Output 3200 ml Net -2075 ml PE: General: patient alert and in no acute distress Lungs: clear to auscultation bilaterally Cardiology: regular rate and rhythm, no murmur Abdomen: normal tenderness to palpation, soft, bowel sounds present. Fundus is firm and at umbilicus Incision: Clean, dry, and intact, no erythema or induration Extremities: no clubbing, cyanosis, or edema : deferred MEDS: Current Facility-Administered Medications Medication Dose Route Frequency Last Rate Last Dose bisacodyl (DULCOLAX) suppository 10 mg 10 mg Rectal QDAILYPRN diphenhydrAMINE (BENADRYL) 25 mg in NaCl 0.9% (NS) piggyback 25 mg IV Piggyback Q6HPRN diphenhydrAMINE (BENADRYL) tablet 25 mg 25 mg Oral Q6HPRN docusate calcium (SURFAK) capsule 240 mg 240 mg Oral QDAILYPRN 240 mg at 07/21/19 0742 human papillomav vac,9-roro(PF) (GARDASIL 9 (PF)) vial 0.5 mL 0.5 mL Intramuscular ONCE-PRIOR TODISCHARGE HYDROcodone-acetaminophen (NORCO 5) 5-325 mg tablet 1 tablet 1 tablet Oral Q6HPRN 1 tablet at07/21/19 0810 HYDROcodone-acetaminophen (NORCO 5) 5-325 mg tablet 2 tablet 2 tablet Oral Q6HPRN 2 tablet at07/22/19 0514 ibuprofen (IBU) tablet 600 mg 600 mg Oral Q6HPRN 600 mg at 07/21/19 2318 magnesium hydroxide (MILK OF MAGNESIA) 400 mg/5 mL suspension 30 mL 30 mL Oral QDAILYPRN ondansetron (ZOFRAN (PF)) injection 4 mg 4 mg Slow IV Push Q8HPRN rho(D) immune globulin (RHOGAM) syringe 300 mcg 300 mcg Intramuscular ONCE simethicone (GAS RELIEF) chewable tablet 160 mg 160 mg Oral PC+HSPRN 160 mg at 07/21/19 2317 varicella virus vaccine live (VARIVAX (PF)) injection 0.5 mL 0.5 mL Subcutaneous ONCE-PRIOR TO DISCHARGE LABS: WBC (10*3/L) Date Value 07/21/2019 18.02 (H) 07/12/2019 11.89 (H) HGB (g/dL) Date Value 07/21/2019 8.6 (L) 07/12/2019 9.5 (L) HCT (%) Date Value 07/21/2019 29.4 (L) 07/12/2019 32.5 (L) PLT (10*3/L) Date Value 07/21/2019 118 (L) 07/12/2019 137 (L) Assessment: Mayte Wright is a 23 year old POD#2 s/p repeat LTCS on 07/21/2019 at 2250 at 37w5d for failed TOLAC, uncomplicated. Patient is recovering well: hemodynamically stable, good UOP, pain well-controlled, vitals within normal limits. Plan: Postoperative Review: - Admitted for: TOLAC - Surgical procedure: Repeat Lower uterine transverse section with no extension - Skin incision: pfannenstiel - Closure: sutures - Estimated blood loss: 700 mL - Intraoperative Complications: none - Clinical trials: TXA - Urine output: Adequate - Preop H/H: 9.5/32.5 - Postop H/H: 8.6/29.4 Antepartum course reviewed - 1 h144, nml 3 hr, seroneg, Ri, VZVni,O+/neg, GBSneg, Pap NIL01/02/19 - H/H, plt:9.5/ 32.5,137on 07/12/19 -[facility] Postoperative care: - Diet: Advance as tolerated - Fluid: Encourage oral intake - Activity: Encourage ambulation and incentive spirometry - Pain: [place] and Ibuprofen - DVT prophylaxis: SCDs and TEDs when not ambulating Discharge Planning - Contraception: Declined - Vaccines: Varivax and Gardasil - Follow up in 5-7 days for incision check and/or staple removal at [facility] - Follow Up: follow-up in 3-6 weeks at [facility] - Dispo: Anticipate discharge POD#2 Baby's Status - APGARs 8 , 9 - Weight: 3590 g - Location: Rooming with mom -Male, declines circumcision Dispo: Patient is POD#2 s/p repeat LTCS. She is meeting all milestones. Anticipate discharge on today. Varivax and Gardasil Josefina Francis MDElectronically signed by Josefina Francis MD at 2018 7:27 AM Josefina Lyn MD - 07/21/2019 6:19 AM CDT POST-OPERATIVE PROGRESS NOTE 07/21/2019 6:19 AM Subjective: Overnight patient had no complaints. Her pain is not well controlled on oral pain medications. She is tolerating a regular diet. She has not passed flatus. She is not ambulating without difficulty. Lochia is moderate. She is urinating with connell. Patient denies chest pain, SOB, n/v, headache, RUQ pain, vision changes, dizziness. Objective: VITALS: Patient Vitals for the past 24 hrs: BP Temp Temp src Pulse Resp SpO2 07/21/19 0400 115/69 36.7 C (98.1 F) Oral 74 20 99 % 07/21/19 0131 116/59 36.9 C (98.4 F) Oral 76 20 99 % 07/21/19 0040 110/61 37.2 C (98.9 F) Axillary 92 17 98 % 07/21/19 0020 102/60 87 12 98 % 07/21/19 0005 76 20 100 % 07/20/19 2340 116/53 37.3 C (99.1 F) Axillary 76 20 100 % 07/20/19 2149 37.7 C (99.8 F) Axillary 07/20/19 2120 108/85 88 18 100 % 07/20/19 2100 99/81 38 C (100.4 F) Axillary 124 18 100 % 07/20/19 2030 112/71 113 18 100 % 07/20/19 2000 101/63 37.9 C (100.3 F) Axillary 127 17 100 % 07/20/19 1930 100/56 83 18 100 % 07/20/19 1900 121/61 37.7 C (99.9 F) Axillary 87 18 100 % 07/20/19 1830 102/57 90 18 98 % 07/20/19 1800 104/62 37.1 C (98.8 F) Oral 88 18 99 % 07/20/19 1700 106/67 80 18 99 % 07/20/19 1630 100/51 37.5 C (99.5 F) Axillary 90 18 99 % 07/20/19 1550 97/52 80 18 99 % 07/20/19 1530 101/54 81 98 % 07/20/19 1500 100/59 36.9 C (98.5 F) Oral 74 18 99 % 07/20/19 1430 114/70 78 18 99 % 07/20/19 1400 115/70 76 18 99 % 07/20/19 1330 111/70 63 100 % 07/20/19 1300 116/74 37.4 C (99.4 F) Axillary 80 18 99 % 07/20/19 1230 109/65 88 18 99 % 07/20/19 1155 107/69 88 18 99 % 07/20/19 1130 105/68 70 18 99 % 07/20/19 1100 111/63 36.9 C (98.4 F) Oral 84 18 99 % 07/20/19 1030 114/70 80 18 99 % 07/20/19 1000 108/73 62 18 99 % 07/20/19 0930 107/69 74 18 99 % 07/20/19 0900 113/67 36.4 C (97.6 F) Oral 72 18 99 % 07/20/19 0830 110/68 88 18 99 % 07/20/19 0800 112/65 74 18 99 % 07/20/19 0730 98/58 86 18 99 % 07/20/19 0700 95/59 36.8 C (98.2 F) Oral 90 18 99 % 07/20/19 0640 100/52 79 16 100 % 07/20/19 0620 108/54 80 18 99 % I/O: Intake/Output Summary (Last 24 hours) at 07/21/2019 0619 Last data filed at 07/21/2019 0530 Gross per 24 hour Intake 3141 ml Output 3100 ml Net 41 ml PE: General: patient alert and in no acute distress Lungs: clear to auscultation bilaterally Cardiology: regular rate and rhythm, no murmur Abdomen: normal tenderness to palpation, soft, bowel sounds present. Fundus is firm and at umbilicus Incision: Covered in clean, dry bandage Extremities: no clubbing, cyanosis, or edema : deferred MEDS: Current Facility-Administered Medications Medication Dose Route Frequency Last Rate Last Dose bisacodyl (DULCOLAX) suppository 10 mg 10 mg Rectal QDAILYPRN diphenhydrAMINE (BENADRYL) 25 mg in NaCl 0.9% (NS) piggyback 25 mg IV Piggyback Q6HPRN diphenhydrAMINE (BENADRYL) tablet 25 mg 25 mg Oral Q6HPRN docusate calcium (SURFAK) capsule 240 mg 240 mg Oral QDAILYPRN HYDROcodone-acetaminophen (NORCO 5) 5-325 mg tablet 1 tablet 1 tablet Oral Q6HPRN 1 tablet at07/21/19 0144 HYDROcodone-acetaminophen (NORCO 5) 5-325 mg tablet 2 tablet 2 tablet Oral Q6HPRN ibuprofen (IBU) tablet 600 mg 600 mg Oral Q6HPRN 600 mg at 07/21/19 0513 lactated ringers IV infusion 1,000 mL 1,000 mL IV Infusion ONCE LR 1000 mL + oxytocin 20 units IV Solution IV Infusion ONCE LR 1000 mL + oxytocin 20 units IV Solution IV Infusion CONTINUOUS 125 mL/ hr at 07/21/19 0047 magnesium hydroxide (MILK OF MAGNESIA) 400 mg/5 mL suspension 30 mL 30 mL Oral QDAILYPRN ondansetron (ZOFRAN (PF)) injection 4 mg 4 mg Slow IV Push Q8HPRN oxytocin (PITOCIN) 40 Units in lactated ringers 1,000 mL IV infusion IV Infusion PRN rho(D) immune globulin (RHOGAM) syringe 300 mcg 300 mcg Intramuscular ONCE simethicone (GAS RELIEF) chewable tablet 160 mg 160 mg Oral PC+HSPRN LABS: WBC (10*3/L) Date Value 07/21/2019 18.02 (H) 07/12/2019 11.89 (H) HGB (g/dL) Date Value 07/21/2019 8.6 (L) 07/12/2019 9.5 (L) HCT (%) Date Value 07/21/2019 29.4 (L) 07/12/2019 32.5 (L) PLT (10*3/L) Date Value 07/21/2019 118 (L) 07/12/2019 137 (L) Assessment: Mayte Wright is a 23 year old POD#1 s/p repeat LTCS on 07/21/2019 at 2250 at 37w5d for failed TOLAC, uncomplicated. Patient is recovering well: hemodynamically stable, good UOP, pain well-controlled, vitals within normal limits. Plan: Postoperative Review: - Admitted for: TOLAC - Surgical procedure: Repeat Lower uterine transverse section with no extension - Skin incision: pfannenstiel - Closure: sutures - Estimated blood loss: 700 mL - Intraoperative Complications: none - Clinical trials: TXA - Urine output: 1.3 cc/kg/hr - Preop H/H: 9.5/32.5 - Postop H/H: 8.6/29.4 Antepartum course reviewed - 1 h 144, nml 3 hr, sero neg, Ri, VZVni, O+/neg, GBS neg, Pap NIL 01/02/19 - H/H, plt: 9.5 / 32.5, 137 on 07/12/19 - [facility] Postoperative care: - Diet: Advance as tolerated - Fluid: Encourage oral intake - Activity: Encourage ambulation and incentive spirometry - Pain: [place] and Ibuprofen - DVT prophylaxis: SCDs and TEDs when not ambulating Discharge Planning - Contraception: Declined - Vaccines: Varivax and Gardasil - Follow up in 5-7 days for incision check and/or staple removal at [facility] - Follow Up: follow-up in 3-6 weeks at [facility] - Dispo: Anticipate discharge POD#2 Baby's Status - APGARs 8 , 9 - Weight: 3590 g - Location: Rooming with mom -desires circumcision Dispo: Patient is POD#1 s/p repeat LTCS and will be 24 hr at 2250 on 07/21/2019. She needs to meet the following milestones: Pain controlled on oral medications , passing flatus, ambulating without difficulty, urinating without the connell, 24 hr incision check. Anticipate discharge on POD#2. Varivax and Gardasil Josefina Francis MD Associated attestation - Ivett No MD - 07/21/2019 3:28 PM CDTI personally examined the patient on 07/21/[address] Marroquin's resident note as written. I actively participated in the decision-making process. Please see the resident's note for additional details. Jorge Alvarado MD - 07/20/2019 10:01 PM CDTOb Progress Note Patient for Repeat CS due to arrest of active phase in the setting of TOLAC Jorge Alvarado MD Jamaica Aldridge MD - 07/20/2019 3:56 PM CDTIntrapartum Progress Note 07/20/2019 3:57 PM Subjective: Patient has no complaints Objective: Vitals last 24 hours: Temp: [36.4 C (97.6 F)-37.4 C (99.4 F)] 36.9 C (98.5 F) Pulse: [62-103] 81 Resp: [16-18] 18 BP: (91-121)/(47-85) 101/54 Intake/Output : No intake/output data recorded. I/O last 3 completed shifts: In: 380 [I.V.:380] Out: 50 [Urine:50] Assessment Active movement: Yes Mode: FSE Uterine Activity: Mode: IUPC Contractions (number / 10 minute): 4-5 Contraction duration (seconds): 50-70 Resting tone: Soft Membrane Status Membrane status: Artificial Rupture date: 07/20/19 Rupture time: 629 Amniotic fluid color: Clear Cervical Exam 6 / 80 % / -2 at 1545 Assessment/Plan: Mayte Wright is a 23 year old at 37w5d OB Assessment: TOLAC OB Plan: s/p FB,Pit@0415 Additional Comments/Detail: FHT reassuring, pt comfortable will continue to monitor Ripening Agent: Oxytocin Intrapartum Plan: Increase Pitocin induction Jamaica Zamora MD Jamaica Aldridge MD - 07/20/2019 11:55 AM CDTIntrapartum Progress Note 07/20/2019 11:55 AM Subjective: Patient has no complaints Objective: Vitals last 24 hours: Temp: [36.4 C (97.6 F)-37.1 C (98.8 F)] 36.9 C (98.4 F) Pulse: [62-127] 70 Resp: [16-20] 18 BP: (91-127)/(47-92) 105/68 Intake/Output : No intake/output data recorded. I/O last 3 completed shifts: In: 380 [I.V.:380] Out: 50 [Urine:50] Assessment Active movement: Yes Mode: FSE Uterine Activity: Mode: IUPC Contractions (number / 10 minute): 6 Contraction duration (seconds): 50-70 Resting tone: Soft Membrane Status Membrane status: Artificial Rupture date: 07/20/19 Rupture time: 629 Amniotic fluid color: Clear Cervical Exam 5 / 80 % / -2 Assessment/Plan: Mayte Wright is a 23 year old at 37w5d OB Assessment: TOLAC OB Plan: s/p FB,Pit@0415 Additional Comments/Detail: FHT reassuring, will continue to monitor Ripening Agent: Oxytocin Intrapartum Plan: Increase Pitocin induction Jamaica Zamora MD Jamaica Aldridge MD - 07/20/2019 7:56 AM CDTIntrapartum Progress Note 07/20/2019 7:56 AM Subjective: Patient has no complaints. Comfortable with epidural Objective: Vitals last 24 hours: Temp: [36.4 C (97.6 F)-37.1 C (98.8 F)] (P) 36.8 C (98.2 F) Pulse: [70-127] (P) 90 Resp: [16-20] (P) 18 BP: (91-127)/(47-92) (P) 95/59 Intake/Output : No intake/output data recorded. I/O last 3 completed shifts: In: 380 [I.V.:380] Out: 50 [Urine:50] Assessment Active movement: Yes Mode: (P) FSE Uterine Activity: Mode: (P) IUPC Contractions (number / 10 minute): (P) 5 Contraction duration (seconds): (P) 50-90 Resting tone: Soft Membrane Status Membrane status: Artificial Rupture date: 07/20/19 Rupture time: 629 Amniotic fluid color: Clear Cervical Exam 5 / 50 % / -2 at 0645 Assessment/Plan: Mayte Wright is a 23 year old at 37w5d OB Assessment: TOLAC OB Plan: s/p FB,Pit@0415 Additional Comments/Detail: intermittent variable decels noted, position changed , on O2. Ripening Agent: Oxytocin Intrapartum Plan: Increase Pitocin induction Previous c/s x 1 - documented LTCS due to nonreassuring status - 51.6% chance of successful - counseled regarding r/b/a of TOLAC vs. Repeat c/s, patient desires TOLAC Antepartum course reviewed - 1 h 144, nml 3 hr, sero neg, Ri, VZVni, O+/neg, GBS neg, Pap NIL 01/02/19 - H/H, plt: 9.5 / 32.5, 137 on 07/12/19 - [facility] Fetus - Presentation on admission: cephalic, DVP 5cm - posterior placenta - Jimi 7# Pt with intermittent variables, no change in station or increased pain at this time. Position changed. Will turn off pitocin and continue to monitor. Discussed with Dr. Jacinda Zamora MD Associated attestation - Keanu Wright - 07/20/2019 9:32 AM CDTAgree with plan, discussed with resident.documented in this encounter Plan of Treatment Date Type Specialty Care Team Description 07/27/2019 Nurse Visit OB Satellites Visit, [facility] Nurse 08/10/2019 Routine Visit OB Satellites Piotr Feliep, [facility] [employer] [address] [place] [address] [phone] Health Maintenance Due Date Last Done Comments [...] encounter Procedures Procedure Name Priority Date/Time Associated Comments Diagnosis CBC WITH Routine 07/21/2019 4:33 Results for this DIFFERENTIAL AM CDT procedure are in the results section. CBC WITH DIFF Routine 07/21/2019 4:33 Results for this AM CDT procedure are in the results section. VENOUS CORD GAS [facility] 07/20/2019 10:55 Results for this PM CDT procedure are in the results section. ARTERIAL CORD GAS [facility] 07/20/2019 10:55 Results for this PM CDT procedure are in the results section. SECTION Level 1 (within 07/20/2019 10:11 s/p repeat c/s 1 hour) PM CDT for FTP w/spinal Case Notes TOLAC FTP, repeat c/s GALV ONLY - SYPHILIS LUKAS 07/19/2019 2:41 PM CDT Results for this IGG/IGM procedure are in the results section. HEPATITIS B SURFACE [facility] 07/19/2019 2:41 PM CDT Results for this ANTIGEN procedure are in the results section. RHO (D) IMMUNE GLOBULIN Routine 07/19/2019 2:07 PM CDT TYPE AND SCREEN [facility] 07/19/2019 2:07 PM CDT documented in this encounter Results CBC WITH DIFFERENTIAL (07/21/2019 4:33 AM CDT) WBC 18.02 (H) 4.30 - 11.10 [facility] 10*3/L SERVICES RBC 3.74 (L) 3.93 - 5.25 [facility] 10*6/L SERVICES HGB 8.6 (L) 11.6 - 15.0 [facility] g/dL SERVICES HCT 29.4 (L) 35.7 - 45.2 % [facility] SERVICES MCV 78.6 (L) 80.6 - 95.5 [facility] fL SERVICES MCH 23.0 (L) 25.9 - 32.8 [facility] pg SERVICES MCHC 29.3 (L) 31.6 - 35.1 [facility] g/dL SERVICES RDW-SD 47.8 39.0 - 49.9 [facility] fL SERVICES RDW-CV 17.6 (H) 12.0 - 15.5 % [facility] SERVICES PLT 118 (L) 166 - 358 [facility] 10*3/L SERVICES MPV 11.8 9.5 - 12.9 fL [facility] SERVICES IPF % 12.1 (H)Comment: 1.3 - 7.7 % [facility] Platelet count SERVICES measured by fluorescence method. NRBC/100 WBC 0.0 0.0 - 10.0 [facility] /100 WBCs SERVICES NRBC x10^3 <0.01 10*3/L [facility] SERVICES GRAN MAT (NEUT) % 87.0 % [facility] SERVICES IMM GRAN % 0.40 % [facility] SERVICES LYMPH % 7.0 % [facility] SERVICES MONO % 5.3 % [facility] SERVICES EOS % 0.1 % [facility] SERVICES BASO % 0.2 % [facility] SERVICES GRAN MAT 15.69 (H) 1.88 - 7.09 [facility] x10^3(ANC) 10*3/uL SERVICES IMM GRAN x10^3 0.07 (H) 0.00 - 0.06 [facility] 10*3/uL SERVICES LYMPH x10^3 1.26 (L) 1.32 - 3.29 [facility] 10*3/uL SERVICES MONO x10^3 0.96 (H) 0.33 - 0.92 [facility] 10*3/uL SERVICES EOS x10^3 <0.03 (L) 0.03 - 0.39 [facility] 10*3/uL SERVICES BASO x10^3 0.03 0.01 - 0.07 [facility] 10*3/uL SERVICES BANDS MARKED INCREASED (A) [facility] Specimen Blood - VENOUS Performing Organization Address City/State/Zipcode Phone Number [facility] CLIA: [id number], [address] [place] [address] [facility] ARTERIAL CORD GAS (07/20/2019 10:55 PM CDT) BASE EXCESS, CORD -2.4 mEq/L [facility] AC PH, CORD (BEAKER) 7.28 7.18 - 7.38 [facility] PC02, CORD 55 32 - 66 mmHg [facility] PO2, CORD 13 10 - 30 mmHg [facility] BICARBONATE, CORD 25 17 - 27 mEq/L [facility] Specimen Blood - CORD Performing Organization Address City/[facility]/Zipcode Phone Number [facility] CLIA: [id number], [address] [place] [id number] [facility] VENOUS CORD GAS (07/20/2019 10:55 PM CDT) VENOUS BASE EXCESS, -2.4 mEq/L [facility] CORD SERVICES VENOUS PH, CORD 7.36 7.25 - 7.45 [facility] VENOUS PC02, CORD 42 27 - 49 mmHg [facility] VENOUS PO2, CORD 22 17 - 41 mmHg [facility] VENOUS BICARBONATE, 23 12 - 29 mEq/L [facility] CORD SERVICES Specimen Blood - CORD Performing Organization Address City/[facility]/Zipcode Phone Number [facility] CLIA: [id number], [address] [place] [phone] [facility] GALV ONLY - SYPHILIS IGG/IGM (07/19/2019 2:41 PM CDT) Pathologist [facility] Syphilis IgG/IgM Non-reactive Non-reactive [facility] Specimen Blood - VENOUS Narrative Performed At Non-reactive - No serologic evidence of T. pallidum [facility] infection. Cannot exclude incubating or early syphilis. Submit a second specimen in 2-4 weeks if syphilis is clinically suspected. Equivocal - Further testing to follow. Reactive - Further testing to follow. Performing Organization Address [facility] Phone Number [facility] CLIA: [id number], [address] [place] [phone] [facility] Hepatitis B Surface Antigen (07/19/2019 2:41 PM CDT) Pathologist [facility] HBsAg HEPATITIS B Negative [facility] SURFACE ANTIGEN SERVICES NEGATIVE HBsAg 0.05 [facility] Semi-Quantitative SERVICES Specimen Blood - VENOUS Performing Organization Address [facility] Phone Number [facility] CLIA: [id number], [address] [place] [phone] [facility] RHO (D) IMMUNE GLOBULIN (07/19/2019 2:07 PM CDT) Pathologist [facility] RHIG CANDIDATE? No- see comment LAB Comment: Patient is not a candidate for RhIg- Patient is Rh Positive. Performed at [facility] Laboratory Services - [facility] Blood Bank [address] [place] [address] Toll Free: [phone] CLIA No. [id number] Specimen Blood - VENOUS Performing Organization Address [facility] Phone Number [facility] Type and Screen - ONCE LUKAS (07/19/2019 2:07 PM CDT) ABO & RH O POSITIVE LAB Comment: Performed at [facility] Laboratory Services - [facility] Blood Bank [address] [place] [address] Toll Free: [phone] CLIA No. [id number] IAT Negative LAB Comment: Performed at [facility] Laboratory Services - [facility] Blood Bank [address] [place] [address] Toll Free: [phone] CLIA No. [id number] Specimen Blood - VENOUS Performing Organization Address City/State/Zipcovt Phone Number [facility] documented in this encounter Visit Diagnoses Diagnosis Status post repeat low transverse section - Primary delivery, without mention of indication, unspecified as to episode of care 37 weeks gestation of state, incidental Previous delivery affecting , antepartum Previous delivery, antepartum condition or complication Maternal varicella, non-immune Supervision of other high-risk Labor and delivery indication for care or intervention Unspecified indication for care or intervention related to labor and delivery, unspecified as to episode of care Decreased movements in third trimester Decreased movements, affecting management of mother, antepartum Obesity (BMI 30-39.9) Obesity, unspecified documented in this encounter Administered Medications Medication Order MAR Action Action Date Dose Rate Site docusate calcium (SURFAK) capsule Given 07/22/2019 7:47 AM CDT 240 mg 240 mg 240 mg, Oral, QDAILYPRN, Starting Wed07/21/19 at 0116, Until Discontinued, Routine, Constipation Given 07/21/2019 7:42 AM CDT 240 mg HYDROcodone-acetaminophen (NORCO 5) 5-325 Given 07/21/2019 8:10 AM CDT 1 tablet mg tablet 1 tablet 1 tablet, Oral, Q6HPRN, Starting Wed07/21/19 at 0116, Until Discontinued, Routine, Pain (scale 4-6), If uncontrolled by Ibuprofen Given 07/21/2019 6:37 AM CDT 1 tablet Given 07/21/2019 1:44 AM CDT 1 tablet HYDROcodone-acetaminophen (NORCO 5) 5-325 Given 07/22/2019 11:42 AM CDT 2 tablets mg tablet 2 tablet 2 tablet, Oral, Q6HPRN, Starting Wed07/21/19 at 0116, Until Discontinued, Routine, Pain (scale 7-10), If uncontrolled by Ibuprofen Given 07/22/2019 5:14 AM CDT 2 tablets Given 07/21/2019 9:15 PM CDT 2 tablets ibuprofen (IBU) tablet 600 mg Given 07/22/2019 7:47 AM CDT 600 mg 600 mg, Oral, Q6HPRN, Starting Wed07/21/19 at 0116, Until Discontinued, Routine, Pain (scale 1-3) Given 07/21/2019 11:18 PM CDT 600 mg Given 07/21/2019 5:39 PM CDT 600 mg simethicone (GAS RELIEF) chewable tablet 160 Given 07/22/2019 11:42 AM CDT 160 mg mg 160 mg, Oral, PC+HSPRN, Starting Wed07/21/19 at 0116, Until Discontinued, Routine, Gas Given 07/22/2019 7:47 AM CDT 160 mg Given 07/21/2019 11:17 PM CDT 160 mg Medication Order MAR Action Action Date Dose Rate Site acetaminophen (TYLENOL) tablet Given 07/20/2019 10:07 PM CDT 650 mg 650 mg 650 mg, Oral, ONCE, 1 dose, [facility] 07/20/19 at 2300, Routine azithromycin (ZITHROMAX) 500 mg in NaCl 0.9% Given 07/20/2019 10:30 PM CDT 500 mg (NS) 250 mL VIAL-MATE IV piggyback 500 mg, IV Piggyback, O.R. HOLDING ONCE, 1 dose, Starting [facility] 07/20/19 at 2151, Until Yadi 07/20/19 at 2330, 250 mL, Reason for Anti-Infective: Surgical Prophylaxis, Surgical Prophylaxis: [employer], Duration of therapy: within 24 hours of surgery ceFAZolin in dextrose (iso-os) (ANCEF) 2 Given 07/20/2019 10:08 PM CDT 2 g gram/100 mL Piggyback 2 g 2 g (2,000 mg), IV Piggyback, O.R. HOLDING ONCE, 1 dose, Starting Yadi 07/20/19 at 2150, Until Yadi 07/20/19 at 2208, 100 mL, Reason for Anti-Infective: Surgical Prophylaxis, Surgical Prophylaxis: ESTIM[employer]PER[employer], Duration of therapy: within 24 hours of surgery D5W-LR IV infusion 1,000 mL New Bag 07/19/2019 3:00 PM CDT 1,000 mL 125 mL/hr at 125 mL/hr, IV Infusion, CONTINUOUS, Starting Wed07/19/19 at 1345, Until Wed07/21/19 at 0116, Routine human papillomav Given 07/22/2019 11:42 AM CDT 0.5 mL Right Deltoid-IM vac,9-roro(PF) (GARDASIL 9 (PF)) vial 0.5 mL 0.5 mL, Intramuscular, ONCE-PRIOR TO DISCHARGE, 1 dose, Starting Wed07/21/19 at 0654, Until Wed07/22/19 at 1142, Routine, Give vaccine prior to discharge HYDROcodone-acetaminophen (NORCO 5) 5-325 Given 07/21/2019 12:43 AM CDT 1 tablet mg tablet 1 tablet 1 tablet, Oral, Q6HPRN, 1 dose, Starting Wed07/21/19 at 0000, Until Wed07/21/19 at 0043, Routine, Pain (scale 4-6) lactated ringers IV infusion New Bag 07/20/2019 10:00 PM CDT 1,000 mL 125 mL/hr 1,000 mL at 125 mL/hr, 1,000 mL, IV Infusion, CONTINUOUS, Starting Wed07/20/19 at 2200, Until Wed07/21/19 at 0116, Routine lactated ringers IV infusion New Bag 07/21/2019 9:42 AM CDT 1,000 mL 125 mL/hr 1,000 mL at 125 mL/hr, 1,000 mL, IV Infusion, ONCE, 1 dose, Wed07/21/19 at 0130, Routine lactated ringers IV infusion 500 mL Restarted 07/20/2019 4:46 PM CDT 999 mL/hr at 999 mL/hr, 500 mL, IV Infusion, ONCE, 1 dose, Yadi 07/20/19 at 0500, Routine lactated ringers IV infusion 500 New Bag 07/20/2019 5:18 AM CDT 500 mL 999 mL/hr mL at 999 mL/hr, 500 mL, IV Infusion, PRN - SEE INSTRUCTIONS, 1 dose, Starting Wed07/20/19 at 0349, Until Wed07/20/19 at 0518, Routine LR 1000 mL + oxytocin 20 Rate Change 07/20/2019 9:00 PM 12 pb-units/min 36 mL/hr units IV Solution CDT 2 pb-units/min (6 mL/hr), at 6 mL/hr, IV Infusion, TITRATE, Starting Yadi 07/20/19 at 0349, Until Wed07/21/19 at 0116, LUKAS, Oxytocin Induction / Augmentation of Labor. Dose/Rate Verify 07/20/2019 6:30 PM CDT 10 pb-units/min 30 mL/hr Dose/Rate Verify 07/20/2019 6:00 PM CDT 10 pb-units/min 30 mL/hr LR 1000 mL + oxytocin 20 units IV New Bag 07/21/2019 12:47 AM CDT 125 mL/ hr Solution at 125 mL/hr, IV Infusion, CONTINUOUS, Starting Wed07/21/19 at 0015, Until Wed07/22/19 at 0014, [facility]UKAS nalbuphine (NUBAIN) injection 10 mg Given 07/19/2019 5:48 PM CDT 10 mg 10 mg, Intravenous, ONCE, 1 dose, Wed07/19/19 at 1830, Routine nalbuphine (NUBAIN) injection 10 mg Given 07/19/2019 9:29 PM CDT 10 mg 10 mg, Intravenous, ONCE, 1 dose, Wed07/19/19 at 2230, Routine proMETHazine (PHENERGAN) 25 mg in NaCl 0.9% Given 07/19/2019 6:40 PM CDT 25 mg (NS) 50 mL IV piggyback 25 mg, IV Piggyback, ONCE, 1 dose, Wed07/19/19 at 1830, LUKAS proMETHazine (PHENERGAN) 25 mg in NaCl 0.9% Given 07/19/2019 10:10 PM CDT 25 mg (NS) 50 mL IV piggyback 25 mg, IV Piggyback, ONCE, 1 dose, Wed07/19/19 at 2230, Routine sodium citrate-citric acid (BICITRA) 500-334 Given 07/20/2019 5:18 AM CDT 30 mL mg/5 mL solution 30 mL 30 mL, Oral, PRE-PROCEDURE ONCE, 1 dose, Starting Yadi 07/20/19 at 0349, Until Yadi 07/20/19 at 0518, Routine, Surgery/Procedure sodium citrate-citric acid (BICITRA) 500-334 Given 07/20/2019 10:07 PM CDT 30 mL mg/5 mL solution 30 mL 30 mL, Oral, PRE-PROCEDURE ONCE, 1 dose, Starting Yadi 07/20/19 at 2150, Until Yadi 07/20/19 at 2207, Routine, Surgery varicella virus vaccine live Given 07/22/2019 2:33 PM CDT 0.5 mL Left Upper Arm-SC (VARIVAX (PF)) injection 0.5 mL 0.5 mL, Subcutaneous, ONCE-PRIOR TO DISCHARGE, 1 dose, Starting 07/21/19 at 0654, Until 07/22/19 at 1433, Routine, Give vaccine prior to discharge documented in this encounter Insurance Payer Benefit Plan / Subscriber ID Effective Phone Address Type Group [facility] xxxxxxxxx 2019-Cade GEORGE Medicaid HEALTH [email or web address] [id number] MANAGED MEDICAID [place], [place] [id number] documented as of this encounter Advance Directives Name Relationship Healthcare Agent Relationship Communication Kelley Kyle Mother Primary healthcare agent
--- NOTE | 2019-07-28 12:49 | RAD REPORT ---
EXAM DESCRIPTION: US - Abdomen Exam Limited - 07/28/2019 12:28 pm CLINICAL HISTORY: bleeding from incision COMPARISON: No comparisons FINDINGS: Limited abdominal sonography was performed along the midline incision of recently performe d surgery. Medially deep to the incision is a 3.5 x 1.3 centimeter heterogeneous hypoechoic collectio n. This is most likely blood products. No thickened or echogenic rim or rind around this collection. Abscess is not currently suspected. IMPRESSION: Approximately 3.5 centimeter size fluid collection deep to the midline incision. This pedraza s the appearance of old blood product. No acute hematoma seen. Abscess not suspected.
[2019-07-28] MEDS ORDERED: Mastisol Adhesive Liq ONE (13:20)
[2019-07-28] MEDS ORDERED: NA CHLORIDE 0.9% 1,000 ML ONE (14:06)
[2019-07-28 14:29] LABS: BUN Blood Urea Nitrogen 10 mg/dL (7-18); Bicarbonate 24 mmol/L (21-32); Glucose Level 80 mg/dL (74-106); Potassium 3.7 mmol/L (3.5-5.1); Sodium Level 142 mmol/L (136-145)
[2019-07-28 15:01] LABS: Absolute Lymphocytes (CBC) 1.6 K/uL (0.7-4.9); Basophils % 0.4 % (0-1.3); Hematocrit 28.8 % (36.0-45.0); Lymphocytes % 13.6 % (15.3-44.8); MPV 8.4 fL (7.6-11.3); RBC Red Blood Cell Count 3.89 M/uL (3.86-4.86)
--- NOTE | 2019-07-28 15:19 | ER ---
Nurse's Notes [facility] Name: Mayte Wright Age: 23 yrs Sex: Female : 1995 Arrival Date: 07/28/2019 Time: 10:05 Bed 17 Private MD: Diagnosis: Anemia complicating childbirth;Intra-abdominal and pelvic swelling, mass and lump, unspecified site Presentation: 07/28 10:23 Presenting complaint: Patient states: "My opened and its been bleeding" aj1 Reports that she noticed it when she woke up this morning. Sanguinous drainage noted from incision. Transition of care: patient was not received from another setting of care. Onset of symptoms was July 28, 2019. Risk Assessment: Do you want to hurt yourself or someone else? Patient reports no desire to harm self or others. Initial Sepsis Screen: Does the patient meet any 2 criteria? HR > 90 bpm. No. Patient's initial sepsis screen is negative. Does the patient have a suspected source of infection? No. Patient's initial sepsis screen is negative. Care prior to arrival: None. 10:23 Method Of Arrival: Wheelchair aj1 10:23 Acuity: ANN 3 aj1 10:29 Note Applied 4x4s to incision site, patient was instructed to notify staff if drsg aj1 becomes saturated, or if she begins feeling worse. Triage Assessment: 10:27 General: Appears in no apparent distress. uncomfortable, Behavior is calm, cooperative, aj1 appropriate for age. Pain: Complains of pain in suprapubic area Pain currently is 8 out of 10 on a pain scale. Neuro: Level of Consciousness is awake, alert, obeys commands. Cardiovascular: Patient's skin is warm and dry. Respiratory: Airway is patent Respiratory effort is even, unlabored, Respiratory pattern is regular, symmetrical. 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 Screenin:15 Abuse screen: Denies threats or abuse. Nutritional screening: No deficits noted. aa5 Tuberculosis screening: No symptoms or risk factors identified. Fall Risk None identified. Assessment: 11:15 General: Appears comfortable, Behavior is calm, cooperative. Pain: Complains of pain in aa5 incision Pain does not radiate. Pain currently is 7 out of 10 on a pain scale. Quality of pain is described as sharp, tender, Pain began 07/20/19 Is continuous, Aggravated by increased activity. Neuro: Level of Consciousness is awake, alert, obeys commands, Oriented to person, place, time, situation. Cardiovascular: Heart tones S1 S2 present Rhythm is regular. Respiratory: Airway is patent Respiratory effort is even, unlabored, Respiratory pattern is regular, symmetrical. GI: Abdomen is round non-distended, Bowel sounds present X 4 quads. Abd is soft and non tender X 4 quads. Patient currently denies nausea, vomiting. : No signs and/or symptoms were reported regarding the genitourinary system. EENT: No signs and/or symptoms were reported regarding the EENT system. Derm: Skin is pink, warm \\T\\ dry. incision noted to be closed, mild serosanguineous drainage noted, steri strips in place. No s/s of infection noted. Musculoskeletal: Range of motion: intact in all extremities. 12:30 Reassessment: Pt back from US, pt states "it started bleeding again after the aa5 ultrasound". Gauze applied to site, oozing of blood noted at this time. . 13:00 Reassessment: Patient is alert, oriented x 3, equal unlabored respirations, skin aa5 warm/dry/pink. incision reinforced via steri strips and Mastisol adhesive by PA, pt tolerated well. No active bleeding noted at this time. Gauze applied to site per PA. edges are well approximated, no obvious opening noted to site. . 14:07 Reassessment: Patient is alert, oriented x 3, equal unlabored respirations, skin aa5 warm/dry/pink. 14:07 Reassessment: No active bleeding noted to site. . aa5 15:30 Reassessment: Patient is alert, oriented x 3, equal unlabored respirations, skin aa5 warm/dry/pink. 16:15 Reassessment: Patient is alert, oriented x 3, equal unlabored respirations, skin aa5 warm/dry/pink. 16:15 Reassessment: No active bleeding noted to site. . aa5 Vital Signs: 10:27 BP 109 / 75; Pulse 104; Resp 18; Temp 97.5; Pulse Ox 100% on R/A; Weight 90.72 kg (R); aj1 Height 5 ft. 4 in. (162.56 cm) (R); Pain 8/10; 13:40 BP 107 / 74 Supine; Pulse 73; Resp 16 S; Temp 98.9(O); Pulse Ox 97% on R/A; aa5 13:42 BP 106 / 63 Sitting; Pulse 78; aa5 13:44 BP 104 / 68 Standing; Pulse 102; aa5 15:30 BP 108 / 64; Pulse 80; Resp 18 S; Temp 98.5(O); Pulse Ox 99% on R/A; aa5 16:12 BP 110 / 65; Pulse 78; Resp 16 S; Temp 98.5(O); Pulse Ox 99% on R/A; aa5 10:27 Body Mass Index 34.33 (90.72 kg, 162.56 cm) aj1 13:44 Pt c/o feeling lightheaded when standing aa5 ED Course: 10:05 Patient arrived in ED. as 10:27 Triage completed. aj1 10:27 Arm band placed on Patient placed in waiting room, Patient notified of wait time. aj1 11:13 Anne Marie Plascencia, RN is Primary Nurse. aa5 11:15 Patient has correct armband on for positive identification. Placed in gown. Bed in low aa5 position. Call light in reach. Side rails up X2. Adult w/ patient. 11:17 Gregorio Marrufo PA is PHCP. cp 11:17 Devon Gibson MD is Attending Physician. cp 12:31 US Abdomen Limited: along incision In Process Unspecified. EDMS 14:00 Initial lab(s) drawn, by me, sent to lab. Inserted saline lock: 22 gauge in right hand, aa5 using aseptic technique. Blood collected. 16:15 No provider procedures requiring assistance completed. IV discontinued, intact, aa5 bleeding controlled, No redness/swelling at site. Pressure dressing applied. Administered Medications: 14:07 Drug: NS 0.9% 1000 ml Route: IV; Rate: 1 bolus; Site: right hand; aa5 15:30 Follow up: IV Status: Completed infusion; IV Intake: 1000ml aa5 16:13 Drug: Rocephin - (cefTRIAXone) 1 grams {Note: administered slow IVP per pharmacy aa5 instruction at this time. .} Route: IVPB; Infused Over: 30 mins; Site: right hand; 16:15 Follow up: Response: No adverse reaction aa5 Intake: 15:30 IV: 1000ml; Total: 1000ml. aa5 Outcome: 15:19 Discharge ordered by MD. cp 16:15 Discharged to home ambulatory, with family, with significant other. aa5 16:15 Condition: stable 16:15 Discharge instructions given to patient, Instructed on discharge instructions, follow up and referral plans. medication usage, Demonstrated understanding of instructions, follow-up care, medications, Prescriptions given X 1. 16:19 Patient left the ED. aa5 Signatures: Dispatcher [facility] EDMS Rakel Gifford RN RN aj1 Osiris Osborne Audri, RN RN aa5 Gregorio Marrufo PA PA cp Corrections: (The following items were deleted from the chart) 20:09 20:08 IV discontinued, intact, bleeding controlled, No redness/swelling at site. aa5 Pressure dressing applied, aa5 20:09 20:08 No provider procedures requiring assistance completed. aa5 aa5 20:18 13:00 Reassessment: Patient is alert, oriented x 3, equal unlabored respirations, skin aa5 warm/dry/pink. incision reinforced via steri strips and Mastisol adhesive by PA, pt tolerated well. No active bleeding noted at this time. Gauze applied to site per PA. . aa5 20:20 15:30 BP 108 / 64; Pulse 80bpm; Resp 18bpm; Spontaneous; Pulse Ox 99% RA; aa5 aa5 20:20 16:12 BP 110 / 65; Pulse 78bpm; Resp 16bpm; Spontaneous; Pulse Ox 99% RA; aa5 aa5
--- NOTE | 2019-07-28 15:20 | EDPHYS ---
Physician Documentation [facility] Name: Mayte Wright Age: 23 yrs Sex: Female : 1995 Arrival Date: 07/28/2019 Time: 10:05 Bed 17 Private MD: ED Physician Devon Gibson HPI: 07/28 11:30 This 23 yrs old Female presents to ER via Wheelchair with complaints of cp Incision Problem. 11:30 The patient presents with drainage from suprapubic surgical incision. cp 11:30 Onset: The symptoms/episode began/occurred today. Associated signs and symptoms: cp Pertinent positives: fever last night. Patient reports having delivery 8 days ago \T\[facility]. 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 ROS: 11:35 Constitutional: Negative for body aches, chills, fever, poor PO intake. cp 11:35 Eyes: Negative for injury, pain, redness, and discharge. cp 11:35 ENT: Negative for drainage from ear(s), ear pain, sore throat, difficulty swallowing, difficulty handling secretions. 11:35 Cardiovascular: Negative for chest pain, palpitations. 11:35 Respiratory: Negative for cough, shortness of breath, wheezing. 11:35 Abdomen/GI: Negative for nausea, vomiting, and diarrhea, constipation. 11:35 Back: Negative for pain at rest, pain with movement. 11:35 Neuro: Negative for altered mental status, headache, weakness. 11:35 All other systems are negative. Exam: 11:45 Constitutional: The patient appears in no acute distress, alert, awake, non-toxic, well cp developed, well nourished. 11:45 Head/Face: Normocephalic, atraumatic. cp 11:45 Eyes: Periorbital structures: appear normal, Conjunctiva: normal, no exudate, no injection, Sclera: no appreciated abnormality, Lids and lashes: appear normal, bilaterally. 11:45 ENT: External ear(s): are unremarkable, Nose: is normal, Mouth: is normal. 11:45 Chest/axilla: Inspection: normal, Palpation: is normal, no crepitus, no tenderness. 11:45 Cardiovascular: Rate: tachycardic, Rhythm: regular. 11:45 Respiratory: the patient does not display signs of respiratory distress, Respirations: normal, no use of accessory muscles, no retractions, no splinting, no tachypnea, labored breathing, is not present, Breath sounds: are clear throughout, no decreased breath sounds, no stridor, no wheezing. 11:45 Abdomen/GI: Suprapubic surgical wound appears w/o dehiscence, minimal swelling noted and mild tenderness to palpation. Drainage from wound appears bloody. 11:45 Back: CVA tenderness, is absent. 11:45 Skin: cellulitis, is not appreciated. Vital Signs: 10:27 BP 109 / 75; Pulse 104; Resp 18; Temp 97.5; Pulse Ox 100% on R/A; Weight 90.72 kg (R); aj1 Height 5 ft. 4 in. (162.56 cm) (R); Pain 8/10; 13:40 BP 107 / 74 Supine; Pulse 73; Resp 16 S; Temp 98.9(O); Pulse Ox 97% on R/A; aa5 13:42 BP 106 / 63 Sitting; Pulse 78; aa5 13:44 BP 104 / 68 Standing; Pulse 102; aa5 15:30 BP 108 / 64; Pulse 80; Resp 18 S; Temp 98.5(O); Pulse Ox 99% on R/A; aa5 16:12 BP 110 / 65; Pulse 78; Resp 16 S; Temp 98.5(O); Pulse Ox 99% on R/A; aa5 10:27 Body Mass Index 34.33 (90.72 kg, 162.56 cm) aj1 13:44 Pt c/o feeling lightheaded when standing aa5 MDM: 11:21 Patient medically screened. cp 15:18 Data reviewed: vital signs, nurses notes, lab test result(s), radiologic studies, cp ultrasound, I have discussed the patient's presentation/case with the attending Emergency Department Physician; and as a result, I will discharge patient. 15:18 Differential diagnosis: urinary tract infection, abscess, cellulitis, seroma, sepsis. cp Counseling: I had a detailed discussion with the patient and/or guardian regarding: the historical points, exam findings, and any diagnostic results supporting the discharge/admit diagnosis, lab results, radiology results, to return to the emergency department if symptoms worsen or persist or if there are any questions or concerns that arise at home. Response to treatment: the patient's symptoms have markedly improved after treatment, and as a result, I will discharge patient. ED course: VSS. Patient with known anemia and is currently taking oral iron. Incision appears to be healing well. Will treat for UTI with oral Keflex and discharge to home for continued monitoring. 07/28 13:45 Order name: CBC with Diff; Complete Time: 15:12 cp 07/28 15:11 Interpretation: Normal except: WBC 11.6; HGB 9.3; HCT 28.8; MCV 74.0; MCH 23.8; RDW cp 19.1; MALHIA% 79.1; LYM% 13.6; NEUT A 9.2. 07/28 13:45 Order name: BMP cp 07/28 11:30 Order name: US Abdomen Limited: along incision; Complete Time: 13:25 cp 07/28 13:45 Order name: Urine Microscopic Only; Complete Time: 12:44 cp 07/28 14:32 Order name: Basic Metabolic Panel; Complete Time: 14:39 EDMS 07/28 14:39 Interpretation: Normal except: CL 109; CRE 0.50. cp 07/28 13:38 Order name: Orthostatics; Complete Time: 13:51 cp 07/28 13:45 Order name: IV; Complete Time: 14:07 cp 07/28 13:45 Order name: Urine Dipstick-Ancillary (obtain specimen); Complete Time: 15:36 cp Administered Medications: 14:07 Drug: NS 0.9% 1000 ml Route: IV; Rate: 1 bolus; Site: right hand; aa5 15:30 Follow up: IV Status: Completed infusion; IV Intake: 1000ml aa5 16:13 Drug: Rocephin - (cefTRIAXone) 1 grams {Note: administered slow IVP per pharmacy aa5 instruction at this time. .} Route: IVPB; Infused Over: 30 mins; Site: right hand; 16:15 Follow up: Response: No adverse reaction aa5 Disposition: 07/28/19 15:19 Discharged to Home. Impression: Anemia complicating childbirth, Intra-abdominal and pelvic swelling, mass and lump, unspecified site. - Condition is Stable. - Discharge Instructions: Anemia, Nonspecific. - Prescriptions for Keflex 500 mg Oral Capsule - take 1 capsule by ORAL route every 8 hours for 10 days; 30 capsule. - Medication Reconciliation Form, Thank You Letter, Antibiotic Education, Prescription Opioid Use form. - Follow up: Private Physician; When: 2 - 3 days; Reason: Wound Recheck. - Problem is new. - Symptoms have improved. Addendum: 07/31/2019 08:49 Co-signature as Attending Physician, Devon Gibson MD I agree with the assessment and k dr plan of care. Signatures: Dispatcher [employer] EDMS Rakel Gifford RN RN aj1 Devon Gibson MD MD kdr Anne Marie Plascencia RN RN aa5 Gregorio Marrufo PA PA cp Corrections: (The following items were deleted from the chart) 07/28 15:23 15:19 07/28/2019 15:19 Discharged to Home. Impression: Anemia complicating childbirth. cp Condition is Stable. Forms are Medication Reconciliation Form, Thank You Letter, Antibiotic Education, Prescription Opioid Use. Follow up: Private Physician; When: 2 - 3 days; Reason: Wound Recheck. Problem is new. Symptoms have improved. cp 16:19 15:23 07/28/2019 15:19 Discharged to Home. Impression: Anemia complicating childbirth; aa5 Intra-abdominal and pelvic swelling, mass and lump, unspecified site. Condition is Stable. Forms are Medication Reconciliation Form, Thank You Letter, Antibiotic Education, Prescription Opioid Use. Follow up: Private Physician; When: 2 - 3 days; Reason: Wound Recheck. Problem is new. Symptoms have improved. cp
[2019-07-28] MEDS ORDERED: CEFTRIAXONE/SWI 1gm 1 GM/10 ML SYR ONE (16:02)
[2019-07-28 16:22] LABS: Urine Bacteria <20 /HPF (<20); Urine Culture Reflex Order REFLEXED; Urine RBC >50 /HPF (NONE SEEN)
[2019-07-28 16:40] VITALS: TEMP 98.9; O2SAT 97
[2019-07-28 16:42] VITALS: BP 104/68
== END 2019-07-28 16:19 | disposition home or self-care (01) ==
LOC: ER 10:03
DX: O90.81 Anemia of the puerperium (principal); D64.9 Anemia, unspecified; Z88.8 Allergy status to other drugs, medicaments and biological substances
CPT/HCPCS: 96361; 87088; 85025; 87086; 80048; 36415; 81015; 76705; 96374; 99284; J0696; J7030